=== PATIENT | male | born 1945 | race Caucasian/White ===

== ENCOUNTER 2020-12-27 16:52 | Observation (INO) | payer OTHER ==
--- OUTSIDE RECORDS SUMMARY | 2020-12-27 16:57 | XMS REPORT | Continuity of Care Document ---
:1945 Author Organization [facility] t Address [address] [place] [address] Care Team Providers Name Role Phone Encarnacion DO Attending Clinician Doctor Unassigned, Name Attending Clinician Unavailable Only, Test Attending Clinician Unavailable Pob, Lab Main Attending Clinician Unavailable Payers Payer Name Policy Type Policy Number Effective Date Expiration Date S ource Problems This patient has no known problems. Allergies, Adverse Reactions, Alerts Allergy Allergy Status Severity Reaction(s) Onset Inactive Treating Comm ents Source Name Type Date Date Clinician codeine DA Active SV 2018-10 [facility] DA Active SV 2018-10 [facility] 11[facility] meloxica DA Active MO 2018-10 [facility] m 11-06 [place] 00:[facility] methocar DA Active U 2018-10 [facility] bamol 11-06 [place] 00:00: [facility] codeine DA Active SV 2018-10 [facility] 0- [place] [facility] adhesive DA Active SV 2018-10 [facility] tape [place] 00:00: [facility] meloxica DA Active MO 2018-10 [facility] m 0- [place] 00:00: [facility] adhesive DA Active SV [facility] tape 2- [place] 00:[facility] codeine DA [facility] [place] adhesive DA Active [facility] [place] Medications This patient has no known medications. Procedures This patient has no known procedures. Encounters Start End Encounter Admission Attending Care Care Encounter Source Date/Time Date/Time Type Type Clinicians Facility Department ID 2020-10-28 2020-10-28 Emergency Encarnacion, [facility] [id number] 10:23:00 11:38:00 Shon Nay [id number] [place] [id number] [place] [id number] 2020-10-28 2020-10-28 Orders Doctor JESSIKA [id number] 00:00:00 00:00:00 Only Unassigned, JAZZ [id number] [place] [id number] 2020-09-12 2020-09-12 Laboratory Only, [facility] [id number] 13:54:39 14:09:39 Only Test Nay [id number] [place] [id number] [place] [id number] 2020-09-07 2020-09-07 Bargain Table Clerk Justin, [facility] [id number] 08:42:58 08:57:58 Visit Lab Main Nay [id number] [place] [id number] [facility] [phone] [facility] 353 Building Results Test Description Test Time Test Comments Results Result [facility] e Comments - MRI UP JNT W/O 2019-08-17 Patient Name: CONT LT 16:12:00 TONYA SHI Unit No: [id number] EXAMS: CPT CODE: [id number] MRI UP JNT W/[place] [id number] MRI OF THE LEFT SHOULDER DIAGNOSIS: 1. Full-thickness tears of the supraspinatus and infraspinatus tendons with 3.2 cm of retraction. The combined tear measures 3.7 cm in AP diameter. Mild fatty atrophy of the muscles is noted. 2. Full-thickness tear of the superior subscapularis tendon with 1 cm of retraction and medial dislocation of the biceps tendon. Biceps tendinosis is seen with increased diameter of the proximal tendon. There is mild fatty atrophy of the subscapularis muscle. COMMENT: COMPARISON: No prior exams available. Scans were performed in the paracoronal, parasagittal and axial planes utilizing T1 , spin density with fat saturation and T2-weighting with and without fat saturation. The rotator cuff is abnormal as described. The acromion is horizontal with AC joint degenerative change. There is no evidence for a labral tear. Joint and bursal effusions are present. at 1612 Reported and signed by: Surendra Miner MD CC: Santiago Castaneda MD Technologist: Lillie Siddiqi(R) Transcribed D/ ([id number]) FlorL [facility] NAME: TONYA SHI [address] [facility] PHYS: Santiago Casey : 1945 AGE: 74 SEX: M [place] [address] LOC: Y.MRI PHONE #: [phone] EXAM DATE: 08/17/2019 STATUS: REG CLI FAX #: [phone] RAD #: D/C DT PAGE 1 Signed Report Patient Name: TONYA SHI Unit No: [id number] EXAMS: CPT CODE: [id number] [place] JNT W/[place] [id number] <Continued> Orig Print D/T: S: 08/17/2019 (2372) [facility] NAME: TONYA SHI [address] [facility] PHYS: FELICIA Verdin Santiago Castaneda : 1945 AGE: 74 SEX: M [place] [address] LOC: Y.MRI PHONE #: [phone] EXAM DATE: 08/17/2019 STATUS: REG CLI FAX #: [phone] RAD #: D/C DT PAGE 2 Signed Report BASIC METABOLIC PANEL 2019-08-17 13:09:00 Test Item Value Reference Range Interpretation Comme nts SODIUM (test code = NA) 141 mmol/L 136-145 N POTASSIUM (test code = K) 4.7 mmol/L 3.5-5.1 N CHLORIDE (test code = CL) 103.0 mmol/L 98-107 N CARBON DIOXIDE (test code = 28.6 mmol/L 21-32 N CO2) GLUCOSE (test code = GLU) 98 mg/dL 70-110 N BLOOD UREA NITROGEN (test code 30 mg/dL 7-18 H = BUN) GLOMERULAR FILTRATION RATE 46.9 >60 U nit of measure: (test code = GFR) mL/min/1.7 3 [id number] Range:Healthy A dults >90 mL/min/1.73 m2 For Chronic Kidney Disease: Stage II Mi ld Decrease in GFR 60-9 0 Stage III Moderate Decrease in GFR 30-59 Stage IV Severe Decrease in GFR 15-29 Stage V Kidney Failure <15 CREATININE (test code = CREAT) 1.46 mg/dL 0.55-1.30 H CALCIUM (test code = CA) 9.1 mg/dL 8.2-10.1 N HGB [id number] 12:29:00 Test Item Value Reference Range Interpretation Comments HEMOGLOBIN (test code = HGB) 12.7 g/dL 12-16 N HEMATOCRIT (test code = HCT) 38.2 % 37-47 N HGB [id number] 05:56:00 Test Item Value Reference Range Interpretation Comments HEMOGLOBIN (test code = HGB) 12.3 g/dL 12-16 N HEMATOCRIT (test code = HCT) 37.3 % 37-47 N URINALYSIS [id number] 16:32:00 Test Item Value Reference Range Interpretation Comments UA COLOR (test code = COLU) YELLOW YELLOW UA APPEARANCE (test code = APPU) CLEAR CLEAR UA GLUCOSE DIPSTICK (test code = NEGATIVE NEGATIVE DGLUU) UA BILIRUBIN DIPSTICK (test code = NEG NEGATIVE BILU) UA KETONE DIPSTICK (test code = NEG mg/dL NEGATIVE KETU) UA SPECIFIC GRAVITY (test code = 1.015 1.003-1.035 SGU) UA BLOOD DIPSTICK (test code = HARVEY) TRACE NEGATIVE A UA PH DIPSTICK (test code = DARLENE) 6.0 >6.5 UA PROTEIN DIPSTICK (test code = NEG mg/dL NEG PROU) UA UROBILINIOGEN DIPSTICK (test 0.2 mg/dL NORM code = URO) UA NITRITE DIPSTICK (test code = NEG NEG FABIENNE) UA LEUKOCYTE ESTERASE DIPSTICK NEG NEGATIVE (test code = LEUU) UA WBC (test code = WBCU) 0-2 /HPF 0-2 UA RBC (test code = RBCU) 0-2 /HPF 0-2 UA EPITHELIAL CELLS (test code = RARE /HPF 0-2 EPIU) UA BACTERIA (test code = BACU) FEW /HPF NONE UA MUCUS (test code = MUCU) 2+ /LPF NONE SEEN PROTHROMBIN [id number] 14:02:00 Test Item Value Reference Range Interpretation Comments PROTHROMBIN TIME 11.7 secs 10.1-12.5 N PATIENT (test code = PTP) INTERNATIONAL NORMAL 1.04 <2.0 RECOMME NDED THERAPEUTIC RATIO (test code = RANGE FOR ORAL INR) ANTICOAGULANTTR EATMENT: CONDI TION INRProphylaxis of venous thrombos is in 2.0 - 3.0 high-risk medic al or surgical patientsTreatme nt of venous thrombos is 2.0 - 3.0Prevention o f embolism 2.0 - 3.0Prevention o f recurrent embol ism, or 3.0 - 4. 5 patients with mechanical pros thetic intravascular v meyer IS PATIENT ON ANTICOAGULANTS ? YLIST ANTICOAGULANT/ANTI PLT MEDICATION : AspirinHas Lab been notified if Patient is on Heparin Drip? NOTHROMBOPLASTIN TIME [id number] 14:02:00 Test Item Value Reference Range Interpretation Comments PTT ACTIVATED (test code = APTT) secs 24.9-37.0 IS PATIENT ON ANTICOAGULANTS ? YLIST ANTICOAGULANT/ANTI PLT MEDICATION : AspirinHas Lab been notified if Patient is on Heparin Drip? NOPROTHROMBIN TIME 2018-11-16 14:02:00 Test Item Value Reference Range Interpretation Comments PROTHROMBIN TIME 11.7 secs 10.1-12.5 N PATIENT (test code = PTP) INTERNATIONAL NORMAL 1.04 <2.0 RECOMME NDED THERAPEUTIC RATIO (test code = RANGE FOR ORAL INR) ANTICOAGULANTTR EATMENT: CONDI TION INRProphylaxis of venous thrombos is in 2.0 - 3.0 high-risk medic al or surgical patientsTreatme nt of venous thrombos is 2.0 - 3.0Prevention o f embolism 2.0 - 3.0Prevention o f recurrent embol ism, or 3.0 - 4. 5 patients with mechanical pros thetic intravascular v meyer IS PATIENT ON ANTICOAGULANTS ? YLIST ANTICOAGULANT/ANTI PLT MEDICATION : AspirinHas Lab been notified if Patient is on Heparin Drip? NOTHROMBOPLASTIN TIME [id number] 14:02:00 Test Item Value Reference Range Interpretation Comments PTT ACTIVATED (test code = APTT) 26.4 secs 24.9-37.0 N IS PATIENT ON ANTICOAGULANTS ? YLIST ANTICOAGULANT/ANTI PLT MEDICATION : AspirinHas Lab been notified if Patient is on Heparin Drip? NOCOMPREHENSIVE METABOLIC [id number] 13:20:00 Test Item Value Reference Range Interpretation Comments SODIUM (test code = 141 mmol/L 136-145 N NA) POTASSIUM (test code = 5.0 mmol/L 3.5-5.1 N K) CHLORIDE (test code = 103.0 mmol/L 98-107 N CL) CARBON DIOXIDE (test 27.6 mmol/L 21-32 N code = CO2) GLUCOSE (test code = 94 mg/dL 70-110 N GLU) BLOOD UREA NITROGEN 14 mg/dL 7-18 N (test code = BUN) GLOMERULAR FILTRATION 71.2 >60 Unit o f measure: RATE (test code = GFR) mL/mi n/1.73 [id number] Range:Healthy Adults >90 mL/min/1.73 m2 For Chronic Kidney Disease: St age II Mild Decrease in GFR 60-90 St age III Moderate Decrease in GFR 30-59 Stage IV Severe Decre ase in GFR 15- 29 Stage V Kidney Failure <15 CREATININE (test code 1.02 mg/dL 0.55-1.30 N = CREAT) TOTAL PROTEIN (test 6.4 g/dL 6.4-8.2 N code = PROT) ALBUMIN (test code = 3.7 g/dL 3.4-5.0 N ALB) GLOBULIN (test code = 2.7 g/dL 2.2-4.2 N GLOB) ALBUMIN/GLOBULIN RATIO 1.4 0.7-2.0 N (test code = A/G) CALCIUM (test code = 8.7 mg/dL 8.2-10.1 N CA) BILIRUBIN TOTAL (test 0.41 mg/dL 0.2-1.00 N code = BILT) SGOT/AST (test code = 18.0 U/L 15-37 N AST) SGPT/ALT (test code = 24.0 U/L 12-78 N Please note new ALT) normal range. ALKALINE PHOSPHATASE 112 U/L 46-116 N TOTAL (test code = ALKP) CBC W/AUTO [id number] 13:00:00 Test Item Value Reference Range Interpretation Comments WHITE BLOOD CELL (test code = WBC) 7.3 K/mm3 5.7-10.5 N RED BLOOD CELL (test code = RBC) 4.81 M/mm3 4.2-5.4 N HEMOGLOBIN (test code = HGB) 14.0 g/dL 12-16 N HEMATOCRIT (test code = HCT) 43.0 % 37-47 N MEAN CELL VOLUME (test code = MCV) 89 fL 80-98 N MEAN CELL HGB (test code = MCH) 29.1 pg 27-34 N MEAN CELL HGB CONCENTRATION (test 32.6 g/dL 30.8-34.1 N code = MCHC) RED CELL DISTRIBUTION WIDTH (test 13.3 % 11-16 N code = RDW) PLT (test code = PLT) 208 K/mm3 130-400 N MEAN PLATELET VOLUME (test code = 11.0 fL 8.9-12.1 N MPV) NEUTROPHIL % (test code = NT%) 69.9 % 45-70 N LYMPHOCYTE % (test code = LY%) 20.8 % 20-40 N MONOCYTE % (test code = MO%) 6.6 % 3-10 N EOSINOPHIL % (test code = EO%) 1.8 % 1-5 N BASOPHIL % (test code = BA%) 0.4 % 0.0-1.1 N NEUTROPHIL # (test code = NT#) 5.11 K/mm3 2.00-7.50 N LYMPHOCYTE # (test code = LY#) 1.52 K/mm3 1.50-4.00 N MONOCYTE # (test code = MO#) 0.48 K/mm3 0.2-0.8 N EOSINOPHIL # (test code = EO#) 0.13 K/mm3 0.04-0.4 N BASOPHIL # (test code = BA#) 0.03 K/mm3 0.02-0.10 N MANUAL DIFF REQUIRED (test code = NO MANUAL DIFF MDIFF) PLATELET MORPHOLOGY REQUIRED (test NORMAL code = PLTMR)
[2020-12-27 18:48] LABS: Absolute Lymphocytes (CBC) 1.8 K/uL (0.7-4.9); Basophils % 0.8 % (0-1.3); Hematocrit 44.8 % (39.6-49.0); Lymphocytes % 12.5 % (15.3-44.8); MPV 8.5 fL (7.6-11.3); RBC Red Blood Cell Count 5.05 M/uL (4.33-5.43)
[2020-12-27 18:49] LABS: Protime INR 1.02
[2020-12-27] MEDS ORDERED: NA CHLORIDE 0.9% 500 ML ONE ×2 (18:55→19:45)
[2020-12-27 19:02] LABS: ALT/SGPT 30 U/L (12-78); AST/SGOT 18 U/L (15-37); Albumin 3.6 g/dL (3.4-5.0); Alkaline Phosphatase 146 U/L (45-117); BUN Blood Urea Nitrogen 13 mg/dL (7-18); Bicarbonate 25 mmol/L (21-32); Bilirubin Direct 0.1 mg/dL (0-0.2); Bilirubin Total 0.5 mg/dL (0.2-1.0); Glucose Level 130 mg/dL (74-106); Magnesium 2.3 mg/dL (1.8-2.4); NT PRO-BNP 186 pg/mL (<450); Potassium 4.1 mmol/L (3.5-5.1); Protein, Total 7.5 g/dL (6.4-8.2); Sodium Level 140 mmol/L (136-145); Troponin (Emerg Dept Use Only) < 0.02 ng/mL (0.0-0.045)
[2020-12-27 19:33] LABS: Urine Blood NEGATIVE (NEG); Urine Glucose NEGATIVE (NEG); Urine Protein 1+ (NEG); Urine Specific Gravity >1.030 (1.005-1.030)
[2020-12-27] MEDS ORDERED: CEFEPIME/SWI 1gm 10 ML ONE (20:01)
[2020-12-27] MEDS ORDERED: NA CHLORIDE 0.9% 2,000 ML ONE (20:10)
[2020-12-27 20:39] LABS: Urine Bacteria 20-50 /HPF (NONE SEEN); Urine Mucus 3+ /HPF (NONE SEEN); Urine RBC <5 /HPF (NONE SEEN)
--- NOTE | 2020-12-27 20:39 | RAD REPORT ---
EXAM DESCRIPTION: CT - Abdomen Pelvis W Contrast - 12/27/2020 8:04 pm CLINICAL HISTORY: Abdominal pain COMPARISON: 2013 TECHNIQUE: Computed axial tomography of the abdomen pelvis was obtained. 100 cc [id number]-300 was admin istered intravenously. Oral contrast was not requested which limits evaluation of bowel. All CT scans are performed using dose optimization technique as appropriate and may include automated exposure control or mA/KV adjustment according to patient size. FINDINGS: 2 centimeter cystic mass is present within the uncinate process of the pancreas. It has in creased in size from the prior exam in which it measured 1.5 centimeters. The remainder of the pancre as is unremarkable Mild fatty liver. Cholecystectomy. Spleen and adrenals unremarkable Small renal cysts. Tiny nonobstructing calculus right kidney. Diverticulum extends from the third por tion of the duodenum. Small inguinal hernias contain fat The wall of a loop of ileum is moderately thickened. Small amount of ascites within the abdomen and p archie. Normal appendix. No evidence of diverticulitis IMPRESSION: 2 centimeter cystic mass within the pancreas has increased in size from the prior exam. 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
--- NOTE | 2020-12-27 20:40 | RAD REPORT ---
EXAM DESCRIPTION: Genevieve Single View12/27/2020 8:15 pm CLINICAL HISTORY: Chest pain COMPARISON: December 26, 2020 FINDINGS: The lungs appear clear of acute infiltrate. The heart is normal size IMPRESSION: No acute abnormalities displayed
[2020-12-27] MEDS ORDERED: METRONIDAZOLE 500mg IVPB 500 MG/100 ML BAG IV ONE (21:38)
--- NOTE | 2020-12-27 21:59 | P.HP ---
Certification for Inpatient Patient admitted to: Observation With expected LOS: <2 Midnights Patient will require the following post-hospital care: None Practitioner: I am a practitioner with admitting privileges, knowledge of patient current condition, hospital course, and medical plan of care. Services: Services provided to patient in accordance with Admission requirements found in Title 42 Section 412.3 of the Code of Federal Regulations Patient History Date of Service: 12/27/20 Primary Care Provider: Dr. Cornejo Reason for admission: Ileitis/UTI History of Present Illness: 75-year-old male with history of hypertension, hyperlipidemia, diverticulitis presents emergency department for abdominal pain, chills. Maxime fields reports he had 1 episode of diarrhea this morning without any melena or bright red blood per rectum. Patient evaluated in the emergency department found to have elevated white blood cell count at 14.7 with left shift, pro calcitonin 0.11 urine microscopic demonstrate 20-50 bacteria, blood in urine cultures obtained in the ER, patient given cefepime, Flagyl in the emergency department. 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 Patient unaware of this incidental finding on prior exam, patient without any epigastric pain or tenderness, lipase within normal limits. This finding was discussed with the patient and he will likely require further workup as an outpatient with gastroenterology. LFTs within normal limits, history of cholecystectomy. ED provider wishes to admit patient for further evaluation and management of UTI/ileitis patient does not appear septic at this time. Allergies codeine Allergy (Verified 11/11/17 11:40) Itching morphine Allergy (Verified 11/11/17 11:40) Itching/Hives/Rash Home Medications: Atorvastatin Calcium [Lipitor*] 20 mg PO BEDTIME 08/20/14 Citalopram [Celexa*] 20 mg PO DAILY 08/20/14 lisinopriL [Prinivil*] 20 mg PO DAILY AFTER SUPPER 08/20/14 Aspirin [Aspirin EC 325 MG] 325 mg PO DAILY 12/25/14 Omeprazole [Prilosec] 40 mg PO DAILY 11/11/17 Sulfamethoxazole/Trimethoprim [Bactrim Ds Tablet] 1 each PO BID #10 tablet 11/15/17 Tramadol HCl/Acetaminophen [Ultracet Tablet] 1 each PO Q4H PRN #30 tablet 11/15/17 - Past Medical/Surgical History Diabetic: No -: HTN -: GERD -: Stroke -: NH -: Diverticulitis -: Hyperlipidemia -: Cholecystectomy Psychosocial/ Personal History: Patient is retired and lives with his - Family History Father Notes: No significant past medical history 1st degree family relatives - Social History Smoking Status: Never smoker Alcohol use: No CD- Drugs: No Caffeine use: Yes Place of Residence: Home Review of Systems General: Chills, Malaise Gastrointestinal: Abdominal Pain, Diarrhea Physical Examination - Physical Exam General: Alert, In no apparent distress HEENT: Atraumatic, PERRLA, Mucous membr. moist/pink Neck: Supple, 2+ carotid pulse no bruit, No LAD Respiratory: Clear to auscultation bilaterally, Normal air movement Cardiovascular: Regular rate/rhythm, Normal S1 S2 Gastrointestinal: Normal bowel sounds, No masses, No rebound, No guarding, Tenderness (Mild suprapubic tenderness) Musculoskeletal: No tenderness Integumentary: No rashes Neurological: Normal speech, Normal strength at 5/5 x4 extr, Normal tone, Normal affect - Studies Laboratory Data (last 24 hrs) 12/27/20 18:30: Lipase 75 12/27/20 18:30: PT 11.7, INR 1.02 12/27/20 18:30: WBC 14.70 H, Hgb 14.9, Hct 44.8, Plt Count 325 12/27/20 18:30: Sodium 140, Potassium 4.1, BUN 13, Creatinine 1.21, Glucose 130 H, Magnesium 2.3, Total Bilirubin 0.5, AST 18, ALT 30, Alkaline Phosphatase 146 H Assessment and Plan - Plan Assessment Abdominal pain/diarrhea/leukocytosis secondary to ileitis Urinary tract infection Incidental finding of 2 cm Cystic mass within the pancreas 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 Clear liquids, advance as tolerated. DVT prophylaxis Lovenox 40 mg subcutaneous once daily. Urinary tract infection: Continue Rocephin, urine culture and blood culture obtained in the emergency department. 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 Discussed this with patient in addition to the need for outpatient follow up, lipase within normal limits. May consult Gastroenterology as necessary. Hypertension: Obtain and continue home med Hyperlipidemia: Obtain and continue home med Discharge Plan: Home Plan to discharge in: 24 Hours - Advance Directives Does patient have a Living Will: No Does patient have a Durable POA for Healthcare: No - Code Status/Comfort Care Code Status Assessed: Yes (Full code) Critical Care: No Time Spent Managing Pts Care (In Minutes): 55
--- NOTE | 2020-12-27 22:03 | ER ---
Nurse's Notes [facility] Name: Zion Guzman Age: 75 yrs Sex: Male : 1945 Arrival Date: 12/27/2020 Time: 17:01 Bed 8 Private MD: Juan Carlos Cornejo E Diagnosis: Urinary tract infection, site not specified;Ileitis Presentation: 12/27 17:14 Chief complaint: Spouse and/or significant other states: "he is recovering from jd3 shingles, and the doc change up his meds and I think he is having a medication reaction today. he goes from hot to cold. sweating to absolute freezing. he was taken off of the valacyclovir and was prescribed famciclovir. I don't know if it is a medication reaction or what. stinging pain to my up chest neck area, and my stomach has been messed up too.". Coronavirus screen: At this time, the client does not indicate any symptoms associated with coronavirus-19. Ebola Screen: Patient negative for fever greater than or equal to 101.5 degrees Fahrenheit, and additional compatible Ebola Virus Disease symptoms. Initial Sepsis Screen: Does the patient meet any 2 criteria? No. Patient's initial sepsis screen is negative. Does the patient have a suspected source of infection? No. Patient's initial sepsis screen is negative. Risk Assessment: Do you want to hurt yourself or someone else? Patient reports no desire to harm self or others. Onset of symptoms was December 27, 2020. 17:14 Method Of Arrival: Wheelchair jd3 17:14 Acuity: EASTON 3 jd3 Historical: - Allergies: 17:20 codeine; jd3 17:20 Robaxin; jd3 - Home Meds: 17:20 atorvastatin oral oral [Active]; citalopram oral [Active]; Lisinopril Oral [Active]; jd3 memantine oral oral [Active]; Aspirin Oral [Active]; - PMHx: 17:20 shingles; Hypertension; jd3 17:22 CVA; jd3 - PSHx: 17:20 Cholecystectomy; right knee; CLARENCE shoulders; jd3 - Immunization history:: Adult Immunizations up to date. - Social history:: Smoking status: Patient reports the use of cigarette tobacco products, denies chronic smoking, but will smoke occasionally. Screenin:42 Abuse screen: Denies threats or abuse. Nutritional screening: No deficits noted. bw Tuberculosis screening: No symptoms or risk factors identified. Fall Risk None identified. Assessment: 17:43 General: Appears in no apparent distress. uncomfortable, Behavior is calm, cooperative, bw appropriate for age. Pain:. Neuro: No deficits noted. Reports weakness since starting new medication. Cardiovascular: No deficits noted. Respiratory: No deficits noted. GI: No deficits noted. : No deficits noted. EENT: No deficits noted. 18:49 Reassessment: Patient appears in no apparent distress at this time. No changes from previously documented assessment. Patient and/or family updated on plan of care and expected duration. Pain level reassessed. Patient is alert, oriented x 3, equal unlabored respirations, skin warm/dry/pink. 19:38 Reassessment: Patient appears in no apparent distress at this time. Patient and/or mg2 family updated on plan of care and expected duration. Pain level reassessed. Patient is alert, oriented x 3, equal unlabored respirations, skin warm/dry/pink. 20:20 Reassessment: Patient appears in no apparent distress at this time. hospitalist at rr5 bedside. 21:24 Reassessment: Patient appears in no apparent distress at this time. provider added rr5 orders of laboratory and medication, no disposition at this time. 22:30 Reassessment: Patient appears in no apparent distress at this time. Patient and/or rr5 family updated on plan of care and expected duration. Pain level reassessed. Patient is alert, oriented x 3, equal unlabored respirations, skin warm/dry/pink. awaiting for covid result. 23:42 Reassessment: Patient appears in no apparent distress at this time. No changes from rr5 previously documented assessment. Patient is alert, oriented x 3, equal unlabored respirations, skin warm/dry/pink. Vital Signs: 17:21 BP 109 / 69; Pulse 86; Resp 17 S; Temp 98.3(O); Pulse Ox 98% on R/A; Weight 97.07 kg jd3 (R); Height 5 ft. 9 in. (175.26 cm) (R); Pain 8/10; 18:42 BP 138 / 71; Pulse 67; Resp 18; Pulse Ox 94% on R/A; bw 19:39 BP 137 / 64; Pulse 73; Resp 18; Pulse Ox 98% on R/A; mg2 20:49 BP 125 / 64; Pulse 70; Resp 19; Temp 98; Pulse Ox 99% ; rr5 21:46 BP 121 / 70; Pulse 79; Resp 16; Pulse Ox 98% ; rr5 23:41 BP 131 / 65; Pulse 72; Resp 19; Temp 98.4; Pulse Ox 98% ; rr5 17:21 Body Mass Index 31.60 (97.07 kg, 175.26 cm) jd3 ED Course: 17:01 Patient arrived in ED. am2 17:02 Juan Carlos Cornejo MD is Private Physician. am2 17:17 Triage completed. jd3 17:21 Arm band placed on. jd3 17:42 Te Paris PA is PHCP. cp 17:42 Sam Barnes MD is Attending Physician. cp 17:43 Paola Jackson RN is Primary Nurse. bw 18:40 Blood Culture Adult (2) Sent. bw 18:40 Lactate Sent. bw 18:40 Procalcitonin Sent. bw 18:42 Patient has correct armband on for positive identification. Bed in low position. Call bw light in reach. Side rails up X2. Pulse ox on. NIBP on. Warm blanket given. 18:42 No provider procedures requiring assistance completed. Inserted saline lock: 20 gauge bw in right antecubital area, using aseptic technique. 21:15 COVID swab sent to lab. rr5 22:02 Dharmesh Ferrer DO is Hospitalizing Provider. cp 23:41 Patient admitted, IV remains in place. intact, No redness/swelling at site. rr5 Administered Medications: 18:41 Drug: NS 0.9% 500 ml Route: IV; Rate: bolus; Site: right antecubital; bw 19:30 Follow up: Response: No adverse reaction; IV Status: Completed infusion; IV Intake: rr5 500ml 19:37 Drug: NS 0.9% 500 ml Route: IV; Rate: bolus; Site: right antecubital; rr5 20:15 Follow up: Response: No adverse reaction; IV Status: Completed infusion; IV Intake: rr5 500ml 19:46 Drug: Cefepime 1 grams Route: IVPB; Rate: 200 ml/hr; Infused Over: 30 mins; Site: right mg2 antecubital; 21:00 Follow up: Response: No adverse reaction; IV Status: Completed infusion; IV Intake: rr5 100ml 19:53 Drug: NS 0.9% (30 ml/kg) 30 ml/kg Route: IV; Rate: bolus; Site: right antecubital; mg2 20:40 Follow up: Response: No adverse reaction; IV Status: Completed infusion; IV Intake: rr5 1900ml 21:45 Drug: Flagyl 500 mg Volume: 100 ml; Route: IVPB; Rate: 200 ml/hr; Infused Over: 30 rr5 mins; Site: right antecubital; 22:15 Follow up: Response: No adverse reaction; IV Status: Completed infusion; IV Intake: rr5 100ml Intake: 19:30 IV: 500ml; Total: 500ml. rr5 20:15 IV: 500ml; Total: 1000ml. rr5 20:40 IV: 1900ml; Total: 2900ml. rr5 21:00 IV: 100ml; Total: 3000ml. rr5 22:15 IV: 100ml; Total: 3100ml. rr5 Outcome: 22:02 Decision to Hospitalize by Provider. cp 23:41 Admitted to Med/surg accompanied by tech, via stretcher, room 206, with chart, Report rr5 called to alexis 23:41 Condition: stable 23:41 Instructed on the need for admit. 23:47 Patient left the ED. rr5 Signatures: Te Paris PA PA cp Susan Mason am2 Lupillo Aguilar RN RN jd3 Suleman Vasquez RN RN mg2 Raudel Tang RN RN rr5 Paola Jackson RN RN bw Corrections: (The following items were deleted from the chart) 20:49 19:39 BP 137 / 64; Pulse 70bpm; Resp 19bpm; Pulse Ox 99%; Temp 98F; rr5 rr5
--- NOTE | 2020-12-27 22:03 | EDPHYS ---
Physician Documentation [facility] Name: Zion Guzman Age: 75 yrs Sex: Male : 1945 Arrival Date: 12/27/2020 Time: 17:01 Bed 8 Private MD: Juan Carlos Cornejo E ED Physician Sam Barnes HPI: 12/27 18:05 This 75 yrs old Male presents to ER via Wheelchair with complaints of cp cold/hot sweats, Doesn't Feel Right, new medication. 18:05 The patient reports fever, not measured (subjective). cp 18:05 Onset: The symptoms/episode began/occurred today. Associated signs and symptoms: cp Pertinent positives: chills, sweats. Patient concerned symptoms due to change of medication for recent shingles outbreak to left side of face. Patient reports change of medication was to a new antiviral, unsure of name of medication . Historical: - Allergies: 17:20 codeine; jd3 17:20 Robaxin; jd3 - Home Meds: 17:20 atorvastatin oral oral [Active]; citalopram oral [Active]; Lisinopril Oral [Active]; jd3 memantine oral oral [Active]; Aspirin Oral [Active]; - PMHx: 17:20 shingles; Hypertension; jd3 17:22 CVA; jd3 - PSHx: 17:20 Cholecystectomy; right knee; CLARENCE shoulders; jd3 - Immunization history:: Adult Immunizations up to date. - Social history:: Smoking status: Patient reports the use of cigarette tobacco products, denies chronic smoking, but will smoke occasionally. ROS: 18:10 Constitutional: Positive for body aches, chills, Negative for fever, poor PO intake. cp 18:10 Eyes: Negative for injury, pain, redness, and discharge. cp 18:10 ENT: Negative for ear pain, sore throat, difficulty swallowing, difficulty handling secretions. 18:10 Cardiovascular: Negative for chest pain, edema, palpitations. 18:10 Respiratory: Negative for cough, shortness of breath, wheezing. 18:10 Abdomen/GI: Positive for abdominal pain, Negative for vomiting, diarrhea, constipation. 18:10 : Negative for urinary symptoms. 18:10 Skin: Positive for rash, of the left side of face. 18:10 Neuro: Negative for altered mental status, dizziness, headache, syncope, weakness. 18:10 All other systems are negative. Exam: 18:15 Constitutional: The patient appears in no acute distress, alert, awake, cp non-diaphoretic, non-toxic, well developed, well nourished, uncomfortable. 18:15 Head/face: Noted is rash, of the left frontal area, left side of forehead, left cp temporal area and left taoism. 18:15 Eyes: Periorbital structures: appear normal, Pupils: equal, round, and reactive to light and accomodation, Extraocular movements: intact throughout, Conjunctiva: normal, no exudate, no injection, Sclera: no appreciated abnormality, Lids and lashes: appear normal, bilaterally. 18:15 ENT: External ear(s): are unremarkable, Nose: is normal, Mouth: Lips: moist, Oral mucosa: moist, Posterior pharynx: Airway: no evidence of obstruction, patent. 18:15 Neck: ROM/movement: is normal, is supple, without pain, no range of motions limitations, no meningismus, no nuchal rigidity. 18:15 Chest/axilla: Inspection: normal, Palpation: is normal, no crepitus, no tenderness. 18:15 Cardiovascular: Rate: normal, Rhythm: regular, Edema: is not appreciated, JVD: is not appreciated. 18:15 Respiratory: the patient does not display signs of respiratory distress, Respirations: normal, no use of accessory muscles, no retractions, labored breathing, is not present, Breath sounds: are clear throughout, no decreased breath sounds, no stridor, no wheezing. 18:15 Abdomen/GI: Inspection: abdomen appears normal, Bowel sounds: active, all quadrants, Palpation: soft, in all quadrants, mild abdominal tenderness, in the mid abdomen, rebound tenderness, is not appreciated, involuntary guarding, is not appreciated. 18:15 Back: pain, is absent, ROM is normal. 18:15 Neuro: Orientation: to person, place \\T\\ time. Mentation: is normal, Motor: moves all fours, strength is normal. Vital Signs: 17:21 BP 109 / 69; Pulse 86; Resp 17 S; Temp 98.3(O); Pulse Ox 98% on R/A; Weight 97.07 kg jd3 (R); Height 5 ft. 9 in. (175.26 cm) (R); Pain 8/10; 18:42 BP 138 / 71; Pulse 67; Resp 18; Pulse Ox 94% on R/A; bw 19:39 BP 137 / 64; Pulse 73; Resp 18; Pulse Ox 98% on R/A; mg2 20:49 BP 125 / 64; Pulse 70; Resp 19; Temp 98; Pulse Ox 99% ; rr5 21:46 BP 121 / 70; Pulse 79; Resp 16; Pulse Ox 98% ; rr5 23:41 BP 131 / 65; Pulse 72; Resp 19; Temp 98.4; Pulse Ox 98% ; rr5 17:21 Body Mass Index 31.60 (97.07 kg, 175.26 cm) jd3 MDM: 17:48 Patient medically screened. cp 21:20 Data reviewed: vital signs, nurses notes, lab test result(s), radiologic studies, CT cp scan, plain films, and as a result, I will admit patient. 21:20 Physician consultation: Ba PERRY was called at 21:15, was contacted at 21:15, cp regarding admission, to the medical/surgical unit. concern for early sepsis due to elevated WBC, elevated lactate and elevated procalcitonin, would like further tests performed, lipase prior to admission due CT showing pancreatic mass. 12/27 18:01 Order name: Basic Metabolic Panel; Complete Time: 19:21 cp 12/27 19:21 Interpretation: Normal except: GLUC 130; GFR 58. cp 12/27 18:01 Order name: CBC with Diff; Complete Time: 19:21 cp 12/27 19:21 Interpretation: Normal except: WBC 14.70; RDW 15.8; MARYCARMEN% 80.9; LYM% 12.5; NEUT A 11.9. cp 03/ 18:01 Order name: LFT's; Complete Time: 19:21 cp 03 19:49 Interpretation: Normal except: ALK 146; GLOB 3.9; A/G 0.9. cp 03/ 18:01 Order name: Magnesium; Complete Time: 19:21 cp 12/27 18:01 Order name: NT PRO-BNP; Complete Time: 19:21 cp 12/27 18:01 Order name: PT-INR; Complete Time: 19:21 cp 12/27 18:01 Order name: Troponin (emerg Dept Use Only); Complete Time: 19:21 cp 03 18:01 Order name: Urine Microscopic Only; Complete Time: 21:00 cp 03/ 21:14 Interpretation: Normal except: UWBC 5-10; UBACT 20-50; MUCUS 3+. cp 03/ 18:01 Order name: Procalcitonin; Complete Time: 19:33 cp 12/27 19:34 Interpretation: Abnormal: Procalcitonin 0.11. cp 03/ 18:01 Order name: Lactate; Complete Time: 19:21 cp 03/ 19:22 Interpretation: Abnormal: LAC 2.7. cp 03/ 18:01 Order name: Blood Culture Adult (2) cp 12/27 19:30 Order name: Urine Dipstick--Ancillary (enter results) tt3 12/27 19:33 Order name: Urine Dipstick-Ancillary; Complete Time: 19:33 EDMS 12/27 21:11 Order name: COVID-19 : Document "Date of Symptom Onset" if Symptomatic. mg2 12/27 18:01 Order name: EKG; Complete Time: 18:02 cp 12/27 18:01 Order name: Cardiac monitoring; Complete Time: 18:41 cp 12/27 19:23 Order name: XRAY Chest (1 view) cp 12/27 19:38 Order name: CT Abd/Pelvis - IV Contrast Only cp 12/27 20:40 Order name: CT; Complete Time: 21:00 EDMS 12/27 20:41 Order name: RAD; Complete Time: 21:00 EDMS 12/27 21:16 Order name: Lipase cp 12/27 21:35 Order name: CORONAVIRUS EDMS 12/27 21:49 Order name: Lipase; Complete Time: 21:57 EDMS 12/27 22:09 Order name: Lactate Sepsis 2 HR Follow-up EDMS 12/27 22:27 Order name: SARS-COV-2 RT PCR EDMS 12/27 18:01 Order name: EKG - Nurse/Tech; Complete Time: 18:41 cp 12/27 18:01 Order name: IV Saline Lock; Complete Time: 18:41 cp 12/27 18:01 Order name: Labs collected and sent; Complete Time: 18:41 cp 12/27 18:01 Order name: O2 Per Protocol; Complete Time: 18:42 cp 12/27 18:01 Order name: O2 Sat Monitoring; Complete Time: 18:42 cp 12/27 18:01 Order name: Urine Dipstick-Ancillary (obtain specimen); Complete Time: 19:38 cp Administered Medications: 18:41 Drug: NS 0.9% 500 ml Route: IV; Rate: bolus; Site: right antecubital; bw 19:30 Follow up: Response: No adverse reaction; IV Status: Completed infusion; IV Intake: rr5 500ml 19:37 Drug: NS 0.9% 500 ml Route: IV; Rate: bolus; Site: right antecubital; rr5 20:15 Follow up: Response: No adverse reaction; IV Status: Completed infusion; IV Intake: rr5 500ml 19:46 Drug: Cefepime 1 grams Route: IVPB; Rate: 200 ml/hr; Infused Over: 30 mins; Site: right mg2 antecubital; 21:00 Follow up: Response: No adverse reaction; IV Status: Completed infusion; IV Intake: rr5 100ml 19:53 Drug: NS 0.9% (30 ml/kg) 30 ml/kg Route: IV; Rate: bolus; Site: right antecubital; mg2 20:40 Follow up: Response: No adverse reaction; IV Status: Completed infusion; IV Intake: rr5 1900ml 21:45 Drug: Flagyl 500 mg Volume: 100 ml; Route: IVPB; Rate: 200 ml/hr; Infused Over: 30 rr5 mins; Site: right antecubital; 22:15 Follow up: Response: No adverse reaction; IV Status: Completed infusion; IV Intake: rr5 100ml Disposition: 22:30 Chart complete. cp Disposition: 12/27/20 22:02 Hospitalization ordered by Dharmesh Ferrer for Inpatient Admission. Preliminary diagnosis are Urinary tract infection, site not specified, Ileitis. - Bed requested for Telemetry/MedSurg (Inpatient). - Status is Inpatient Admission. rr5 - Condition is Stable. - Problem is new. - Symptoms have improved. Addendum: 12/29/2020 09:14 Co-signature as Attending Physician, Sam Barnes MD I agree with the assessment and k dr plan of care. Signatures: Dispatcher [employer] EDSam Mercer MD MD kdr Attema, Lee, MANUFACTURING CONTROLS ENGINEER-C MANUFACTURING CONTROLS ENGINEER-Cla1 Page, Te, PA PA cp Sofi Nation, RN RN cg Lupillo Aguilar, RN RN jd3 Suleman Vasquez, RN PRINCESS [facility] [place] Raudel Tang RN RN rr5 Paola Jackson RN RN Corrections: (The following items were deleted from the chart) 12/27 19:37 19:23 [place] ordered. cp rr5 22:04 22:02 Hospitalization Ordered by Dharmesh Ferrer DO for Inpatient Admission. Preliminary cp diagnosis is Urinary tract infection, site not specified. Bed requested for Telemetry/MedSurg (Inpatient). Status is Inpatient Admission. Condition is Stable. Problem is new. Symptoms have improved. cp 23:33 22:04 12/27/2020 22:02 Hospitalization Ordered by Dharmesh Ferrer DO for Inpatient cg Admission. Preliminary diagnosis is Urinary tract infection, site not specified; Ileitis. Bed requested for Telemetry/MedSurg (Inpatient). Status is Inpatient Admission. Condition is Stable. Problem is new. Symptoms have improved. cp 23:47 23:33 12/27/2020 22:02 Hospitalization Ordered by Dharmesh Ferrer DO for Inpatient rr5 Admission. Preliminary diagnosis is Urinary tract infection, site not specified; Ileitis. Bed requested for Telemetry/MedSurg (Inpatient). Status is Inpatient Admission. Condition is Stable. Problem is new. Symptoms have improved. cg
[2020-12-28] MEDS ORDERED: ONDANSETRON 4 MG/2 ML VIAL IV PRN (00:24)
[2020-12-28] MEDS ORDERED: NA CHLORIDE 0.9% 1,000 ML IV SCH (00:24)
[2020-12-28] MEDS ORDERED: ACETAMINOPHEN 500 MG TAB PO PRN (00:24)
[2020-12-28] MEDS ORDERED: FENTANYL CITR 100 MCG/2 ML IV PRN (00:24)
[2020-12-28 00:40] VITALS: BMI 30.4
[2020-12-28] MEDS ORDERED: METRONIDAZOLE 500mg IVPB 500 MG/100 ML BAG IV SCH (01:00)
[2020-12-28 01:42] VITALS: O2SAT 98
[2020-12-28 04:32] LABS: Urine Appearance CLEAR; Urine Bilirubin NEGATIVE (NEG); Urine Blood NEGATIVE (NEG); Urine Color YELLOW; Urine Glucose NEGATIVE (NEG); Urine Protein NEGATIVE (NEG); Urine Specific Gravity >=1.030 (1.005-1.030); Urine Urobilinogen 0.2 mg/dL (0.2-1.0); Urine pH 6.5 (5.0-7.0)
[2020-12-28 04:34] LABS: Urine Microscopic Reflex NO UMIC
[2020-12-28] MEDS: METRONIDAZOLE 500mg IVPB 500 MG/100 ML BAG IV SCH ×3 (05:48→21:39)
[2020-12-28 05:51] LABS: Absolute Lymphocytes (CBC) 1.3 K/uL (0.7-4.9); Basophils % 0.5 % (0-1.3); Lymphocytes % 15.5 % (15.3-44.8); MPV 8.3 fL (7.6-11.3); RBC Red Blood Cell Count 3.92 M/uL (4.33-5.43)
[2020-12-28 06:14] LABS: Albumin 2.9 g/dL (3.4-5.0); Bilirubin Total 0.6 mg/dL (0.2-1.0); Magnesium 2.2 mg/dL (1.8-2.4); Potassium 5.2 mmol/L (3.5-5.1); Protein, Total 5.8 g/dL (6.4-8.2); Thyroid Stimulating Hormone 1.69 uIU/mL (0.360-3.740)
[2020-12-28] MEDS ORDERED: TRAMADOL HCL 50 MG TAB PO PRN (08:06)
[2020-12-28] MEDS ORDERED: HYDRALAZINE HCL 20 MG/ML VIAL IV PRN (08:08)
--- NOTE | 2020-12-28 08:20 | P.PN ---
Subjective Date of Service: 12/28/20 Primary Care Provider: Dr. Cornejo Chief Complaint: Ileitis/UTI Subjective: Other (Pain to the abdomen improved. No significant nausea vomiting.) Physical Examination - Vital Signs Temperature: 98.4 F Blood Pressure: 131/58 Pulse: 74 Respirations: 18 Pulse Ox (%): 95 - Studies Laboratory Data (last 24 hrs) 12/27/20 18:30: Lipase 75 12/27/20 18:30: PT 11.7, INR 1.02 12/27/20 18:30: WBC 14.70 H, Hgb 14.9, Hct 44.8, Plt Count 325 12/27/20 18:30: Sodium 140, Potassium 4.1, BUN 13, Creatinine 1.21, Glucose 130 H, Magnesium 2.3, Total Bilirubin 0.5, AST 18, ALT 30, Alkaline Phosphatase 146 H Assessment & Plan Discharge Plan: Home Plan to discharge in: 24 Hours Physician Review Additional Text: Physical exam: Patient alert, cooperative. No significant distress noted. Heart: Regular rate rhythm Lungs: Clear to auscultation Abdomen: Soft minimal tenderness. Normal bowel sounds. Extremities: Good range of motion to the upper lower extremities. No focal deficits. No significant edema noted. 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 Blood and urine cultures obtained. Stool samples also obtained. Patient tolerating clear liquid diet. Will advance to full liquid. If doing well will advance to soft diet later today. Continue DVT prophylaxis. Encourage ambulation. Will provide incentive spirometer. CT scan finding reviewed with patient. Patient sees GI as an outpatient. This will need to be followed up as an outpatient with further evaluation including ERCP and likely biopsy at a tertiary care center. Anticipate improvement over the next 24 hr with possible discharge tomorrow. Acute renal insufficiency with hyperkalemia: Likely dehydration. Will adjust IV fluids. Recheck potassium. 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 2 cm cystic mass present within the uncinate process of the pancreas. This has increased in size. It had measured 1.5 cm in the past. This is suspicious for intraductal papillary mucinous neoplasm. Patient sees GI-Dr. Olson as an outpatient. Recommend follow up with GI as an outpatient for ERCP with likely biopsy. That will likely have to be done at a tertiary care center. Will reach out to GI for further recommendations. Hypertension: Need to obtain and restart home medication. Will provide IV medication as needed. Hyperlipidemia: Need to obtain a restart home medication. Recent episodes of shingles: Patient reports having shingles in September. He was given antiviral at that time along with Neurontin. Neurontin was helping but this was changed to a different type of pain medication. Will need to obtain and verify home medication. Will restart Neurontin 600 mg 3 times a day. Obesity, BMI 30.5: Time Spent Managing Pts Care (In Minutes): 55
[2020-12-28] MEDS: NACHLORIDE 0.45% 1,000 ML IV SCH (09:00)
[2020-12-28] MEDS: ASPIRIN EC 81 MG TAB PO SCH (09:00)
[2020-12-28] MEDS ORDERED: CEFTRIAXONE 1 GM/NS 50 ML 1 GM/50 ML BAG IV SCH (09:00)
[2020-12-28] MEDS: ENOXAPARIN 40 MG/0.4 ML SQ SCH (09:03)
[2020-12-28] MEDS: GABAPENTIN 300 MG CAP PO SCH ×3 (09:03→20:17)
[2020-12-28] MEDS: CEFTRIAXONE/SWI 1gm 1 GM/10 ML SYR IV SCH (09:03)
[2020-12-29] MEDS: NACHLORIDE 0.45% 1,000 ML IV SCH (05:00)
[2020-12-29 06:32] LABS: Absolute Lymphocytes (CBC) 1.1 K/uL (0.7-4.9); Basophils % 0.4 % (0-1.3); Lymphocytes % 18.9 % (15.3-44.8); MPV 8.1 fL (7.6-11.3); RBC Red Blood Cell Count 3.73 M/uL (4.33-5.43)
[2020-12-29] MEDS: METRONIDAZOLE 500mg IVPB 500 MG/100 ML BAG IV SCH (06:34)
[2020-12-29 06:47] LABS: Albumin 2.9 g/dL (3.4-5.0); Bilirubin Total 0.4 mg/dL (0.2-1.0); Magnesium 2.4 mg/dL (1.8-2.4); Potassium 4.2 mmol/L (3.5-5.1); Protein, Total 5.8 g/dL (6.4-8.2)
[2020-12-29] MEDS ORDERED: PANTOPRAZOLE 40MG TABLET PO SCH (07:30)
--- NOTE | 2020-12-29 09:24 | P.DS ---
Admission Date: 12/27/20 Discharge Date: 12/29/20 Primary Care Provider: Dr. Cornejo Disposition: ROUTINE DISCHARGE Discharge Condition: GOOD Reason for Admission: Ileitis/UTI Consultations: None Procedures: COVID: Negative CT Scan: COMPARISON: 2013 TECHNIQUE: Computed axial tomography of the abdomen pelvis was obtained. 100 cc Isovue-300 was administered intravenously. Oral contrast was not requested which limits evaluation of bowel. All CT scans are performed using dose optimization technique as appropriate and may include automated exposure control or mA/KV adjustment according to patient size. FINDINGS: 2 centimeter cystic mass is present within the uncinate process of the pancreas. It has increased in size from the prior exam in which it measured 1.5 centimeters. The remainder of the pancreas is unremarkable Mild fatty liver. Cholecystectomy. Spleen and adrenals unremarkable Small renal cysts. Tiny nonobstructing calculus right kidney. Diverticulum extends from the third portion of the duodenum. Small inguinal hernias contain fat The wall of a loop of ileum is moderately thickened. Small amount of ascites within the abdomen and pelvis. Normal appendix. No evidence of diverticulitis IMPRESSION: 2 centimeter cystic mass within the pancreas has increased in size from the prior exam. 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 Patient reports he had 1 episode of diarrhea this morning without any melena or bright red blood per rectum. Patient evaluated in the emergency department found to have elevated white blood cell count at 14.7 with left shift, pro calcitonin 0.11 urine microscopic demonstrate 20-50 bacteria, blood in urine cultures obtained in the ER, patient given cefepime, Flagyl in the emergency department. 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 Patient unaware of this incidental finding on prior exam, patient without any epigastric pain or tenderness, lipase within normal limits. Patient admitted for further evaluation and treatment. Hospital Course: Patient presented Abdominal pain/diarrhea/leukocytosis secondary to ileitis and UTI. CT scan revealed inflammation to the ileum. The patient was admitted for IV antibiotic treatment. Patient has done well. Blood and urine cultures negative. Patient was slightly dehydrated. This improved with IV fluid hydration. Renal function back to baseline. His diet has been able to be advanced to a soft diet without significant nausea, vomiting or abdominal pain. Patient was able to have a bowel movement without difficulty. At discharge no significant pain noted. At discharge patient will continue with Cipro 500 mg twice daily and Flagyl 500 mg 3 times a day for 7 days. Patient will also continue with probiotic 3 times a day. At discharge patient will continue with a soft diet and advance to a heart healthy diet. Recommend follow up with GI within 1 week to follow up this hospitalization. Patient already sees GI. Patient will likely require colonoscopy in 6-8 weeks. This can be done with the help of GI. CT also showed a 2 cm cystic mass within the pancreas. This has increased in size since 2013. It measured 1.5 cm in the past. This is suspicious for intraductal papillary mucinous neoplasm. Recommend follow up with GI who he already sees as an outpatient. Patient will likely have to have an outpatient ERCP with biopsy. This will need to be further addressed by GI. Patient with hypertension. This appears stable. At discharge patient will continue with lisinopril 20 mg daily. Recommend to maintain blood pressure less than 130/80. Further adjustment can be done by his PCP. Patient with hyperlipidemia. At discharge patient will continue with Lipitor 20 mg daily. Patient with depression. At discharge patient will continue with Celexa 20 mg daily. Patient with GERD. At discharge patient will continue with Prilosec 40 mg daily. Patient with recent history of shingles. This occurred in September. He had been treated with Neurontin but this was changed to another medication. He prefers to continue with Neurontin. Patient will be given it Neurontin 600 mg 3 times a day as needed for pain. Recommend follow up with his PCP to further address and refill medication. Vital Signs/Physical Exam: Temp Pulse Resp BP Pulse Ox 96.8 F 67 19 139/65 97 12/29/20 04:10 12/29/20 04:10 12/29/20 04:10 12/29/20 04:10 12/29/20 04:10 General: Alert, In no apparent distress, Oriented x3, Cooperative HEENT: Atraumatic Neck: Supple Respiratory: Clear to auscultation bilaterally, Normal air movement Cardiovascular: Normal pulses, Regular rate/rhythm Gastrointestinal: Normal bowel sounds, Soft and benign, Non-distended, No ascites, No tenderness, No masses, No rebound, No guarding Musculoskeletal: No erythema, No tenderness, No warmth Integumentary: No tenderness/swelling, No erythema, No warmth, No cyanosis Neurological: Normal speech, Normal strength at 5/5 x4 extr, Normal tone, Normal affect Laboratory Data at Discharge: WBC 6.00 K/uL (4.3-10.9) D 12/29/20 05:55 Hgb 11.3 g/dL (13.6-17.9) L 12/29/20 05:55 Hct 33.0 % (39.6-49.0) L 12/29/20 05:55 Plt Count 196 K/uL (152-406) 12/29/20 05:55 PT 11.7 SECONDS (9.5-12.5) 12/27/20 18:30 INR 1.02 12/27/20 18:30 Sodium 144 mmol/L (136-145) 12/29/20 05:55 Potassium 4.2 mmol/L (3.5-5.1) 12/29/20 05:55 BUN 7 mg/dL (7-18) 12/29/20 05:55 Creatinine 0.96 mg/dL (0.55-1.3) 12/29/20 05:55 Glucose 104 mg/dL (74-106) 12/29/20 05:55 Magnesium 2.4 mg/dL (1.8-2.4) 12/29/20 05:55 Total Bilirubin 0.4 mg/dL (0.2-1.0) 12/29/20 05:55 AST 18 U/L (15-37) 12/29/20 05:55 ALT 23 U/L (12-78) 12/29/20 05:55 Alkaline Phosphatase 110 U/L (45-117) 12/29/20 05:55 Triglycerides 228 mg/dL (<150) H 12/28/20 05:37 Cholesterol 218 mg/dL (<200) H 12/28/20 05:37 HDL Cholesterol 38 mg/dL (40-60) L 12/28/20 05:37 Cholesterol/HDL Ratio 5.74 12/28/20 05:37 Lipase 77 U/L (73-393) 12/28/20 05:37 Home Medications: Atorvastatin Calcium [Lipitor*] 20 mg PO BEDTIME 08/20/14 Citalopram [Celexa*] 20 mg PO DAILY 08/20/14 lisinopriL [Prinivil*] 20 mg PO DAILY AFTER SUPPER 08/20/14 Aspirin [Aspirin EC 325 MG] 325 mg PO DAILY 12/25/14 Omeprazole [Prilosec] 40 mg PO DAILY 11/11/17 Ciprofloxacin HCl [Cipro 500 MG Tablet] 500 mg PO BID #14 tab 12/29/20 Gabapentin 600 mg PO TID #30 tablet 12/29/20 L.acidoph,Paracasei, B.lactis [Probiotic] 1 each PO TID #30 capsule 12/29/20 metroNIDAZOLE [Flagyl] 500 mg PO Q8H #21 tablet 12/29/20 New Medications: Ciprofloxacin HCl [Cipro 500 MG Tablet] 500 mg PO BID #14 tab metroNIDAZOLE [Flagyl] 500 mg PO Q8H #21 tablet Gabapentin 600 mg PO TID #30 tablet L.acidoph,Paracasei, B.lactis [Probiotic] 1 each PO TID #30 capsule Physician Discharge Instructions: Patient presented Abdominal pain/diarrhea/leukocytosis secondary to ileitis and UTI. CT scan revealed inflammation to the ileum. The patient was admitted for IV antibiotic treatment. Patient has done well. Blood and urine cultures negative. Patient was slightly dehydrated. This improved with IV fluid hydration. Renal function back to baseline. His diet has been able to be advanced to a soft diet without significant nausea, vomiting or abdominal pain. Patient was able to have a bowel movement without difficulty. At discharge no significant pain noted. At discharge patient will continue with Cipro 500 mg twice daily and Flagyl 500 mg 3 times a day for 7 days. Patient will also continue with probiotic 3 times a day. At discharge patient will continue with a soft diet and advance to a heart healthy diet. Recommend follow up with GI within 1 week to follow up this hospitalization. Patient already sees GI. Patient will likely require colonoscopy in 6-8 weeks. This can be done with the help of GI. CT also showed a 2 cm cystic mass within the pancreas. This has increased in size since 2014. It measured 1.5 cm in the past. This is suspicious for intraductal papillary mucinous neoplasm. Recommend follow up with GI who he already sees as an outpatient. Patient will likely have to have an outpatient ERCP with biopsy. This will need to be further addressed by GI. Patient with hypertension. This appears stable. At discharge patient will continue with lisinopril 20 mg daily. Recommend to maintain blood pressure less than 130/80. Further adjustment can be done by his PCP. Patient with hyperlipidemia. At discharge patient will continue with Lipitor 20 mg daily. Patient with depression. At discharge patient will continue with Celexa 20 mg daily. Patient with GERD. At discharge patient will continue with Prilosec 40 mg daily. Patient with recent history of shingles. This occurred in September. He had been treated with Neurontin but this was changed to another medication. He prefers to continue with Neurontin. Patient will be given it Neurontin 600 mg 3 times a day as needed for pain. Recommend follow up with his PCP to further address and refill medication. Diet: AHA Activity: Ad chucho Followup: Juan Carlos Cornejo MD [Primary Care Provider] - Time spent managing pt's care (in minutes): 55
[2020-12-29] MEDS: CEFTRIAXONE/SWI 1gm 1 GM/10 ML SYR IV SCH (09:44)
[2020-12-29] MEDS: ENOXAPARIN 40 MG/0.4 ML SQ SCH (09:44)
[2020-12-29] MEDS: ASPIRIN EC 81 MG TAB PO SCH (09:44)
[2020-12-29] MEDS: GABAPENTIN 300 MG CAP PO SCH (09:44)
[2020-12-29 10:48] VITALS: BP 143/79; TEMP 97
== END 2020-12-29 11:30 | disposition home or self-care (01) ==
LOC: ER 16:52 → ERHOLD 21:49 → 2ND 23:41
PROVIDERS: ADMIT Family Medicine; ATTEND Family Medicine
DX: K52.9 Noninfective gastroenteritis and colitis, unspecified (principal); N39.0 Urinary tract infection, site not specified; E87.5 Hyperkalemia; N28.9 Disorder of kidney and ureter, unspecified; K86.9 Disease of pancreas, unspecified; I10 Essential (primary) hypertension; Z20.822 Contact with and (suspected) exposure to COVID-19; E78.5 Hyperlipidemia, unspecified; E66.9 Obesity, unspecified; Z68.30 Body mass index [BMI] 30.0-30.9, adult; F32.9 Major depressive disorder, single episode, unspecified; B02.9 Zoster without complications; Z86.73 Personal history of transient ischemic attack (TIA), and cerebral infarction without residual deficits; I25.2 Old myocardial infarction
CPT/HCPCS: 96365; 96367; 96361; 87040 ×2; 87088; 85025 ×3; 87086; 80048; 36415 ×2; 83735 ×3; 84132; 85610; 80061; 82947; 80076; 83605 ×2; 84443; 81003; 84484; 84439; 83690 ×2; 80053 ×2; 84145 ×2; 83880; 74177; 71045; 94010; 99285; U0003; J1650 ×2; J0696 ×2; J0692; J7040 ×2; J7030 ×2; J2405; G0378 ×3; 81015

== ENCOUNTER 2022-02-11 10:18 | Observation (INO) | payer OTHER ==
--- OUTSIDE RECORDS SUMMARY | 2022-02-11 10:23 | XMS REPORT | Continuity of Care Document ---
:1945 Author Organization [facility] t Address [address] [place] [address] [address] [place] [address] Care Team Providers Name Role Phone Cornejo E Primary Care Physician Chelsea SÁNCHEZ, T Attending Clinician Unavailable Only, Db Test Attending Clinician Unavailable Tracie TORRES Attending Clinician Singer AMADOR Attending Clinician Doctor Unassigned, Name Attending Clinician Unavailable Only, Test Attending Clinician Unavailable Emerita MONTEZ Attending Clinician EMERITA Attending Clinician Unavailable Pob, Lab Main Attending Clinician Unavailable Heri Moura MD Attending Clinician Heri MOURA Attending Clinician Unavailable Ajibade_O_AH Attending Clinician Unavailable Ige-Odunuga_J_AH Attending Clinician Unavailable Javy Merino MD Attending Clinician Ajibade_O_AH Admitting Clinician Unavailable Ige-[place]un[place]_J_AH Admitting Clinician Unavailable Payers Payer Name Policy Type Policy Number Effective Date Expiration Date Lary JAY PLUS [id number] 2020 CLASSIC/VALUE 00:00:00 MEDICARE PART A \\T\\ [id number] 2008 B 00:00:00 COMMERCIAL [id number] 2013 NON-CONTRACT 00:00:00 GENERIC WELLCARE OF [place] - [id number] 2019 [place] (MEDICARE 00:00:00 REPLACEMENT/ADVANTA GE - HMO) Problems Condition Condition Condition Status Onset Resolution Last Treating Co mments Source Name Details Category Date Date Treatment Clinician Date Obesity Obesity Disease Active 2016-10 Univers 2 ity of 00:00: [place] 00 [facility] Essential Essential Disease Active 2014-10 Uni vers hypertensi hypertensi 11 it y of on on 00:00: [place] 00 [facility] Depression Depression Disease Active 2014-10 U nivers 11-04 ity of 00:00: [place] [facility] Hyperchole Hyperchole Disease Active 2014-10 U nivers steremia steremia 11-04 ity of 00:00: [place] 00 [facility] Bilateral Bilateral Disease Active 2014-10 Uni vers hearing hearing 11-04 ity of loss loss 00:00: [place] 00 [facility] Allergies, Adverse Reactions, Alerts Allergy Allergy Status Severity Reaction(s) Onset Inactive Treating Comm ents Source Name Type Date Date Clinician codeine DA Active SV 2018- [facility] 1[facility]13 [place] [facility] adhesive DA Active SV 2018-10 [facility] tape 1-13 [place] [facility] meloxica DA Active MO 2018-10 [facility] m 1-13 [place] [facility] methocar DA Active U 2018-10 [facility] bamol 1-13 [place] 00:[facility] codeine DA Active SV 2018- [facility] 0-24 [place] 00:[facility] adhesive DA Active SV 2018-10 [facility] tape 0-24 [place] 00:[facility] meloxica DA Active MO 2018-1 [facility] m 0-24 [place] [facility] HYDROCOD DRUG Active ITCHING 2018- Univers ONE-ACET 2-21 ity of AMINOPHE 00:00: [place] N 00 Medical Branch Hydrocod Propensi Active Itching Unive rs one-Acet ty to 2-21 ity of aminophe adverse 00:00: [place] n reaction 00 Medical s Branch adhesive DA Active SV 2018- [facility] tape 2-12 [place] 00:[facility] codeine DA Active SV 2018- [facility] 1-23 [facility] [place] adhesive DA Active SV 2018- [facility] tape 1-23 [facility] [place] CODEINE DRUG Active Med Hives 2014-10 Univers INGREDI 0-05 ity of 00:00: [place] 00 [facility] Codeine Propensi Active Hives 2014-10 Univers ty to 0-05 ity of adverse 00:00: [place] reaction 00 Medical s Branch Social History Social Habit Start Date Stop Date Quantity Comments Source History of Chews Tobacco University of tobacco use [facility] Exposure to Not sure [place] of SARS-CoV-2 [facility] (event) [place] Alcohol intake 2019-08-03 2019-08-03 1.43 /d University of 00:00:00 00:00:00 [facility] Tobacco use and 2019-04-05 2019-04-05 Former user Universi ty of exposure 00:00:00 00:00:00 [facility] Tobacco Comment 2017-11-02 2017-11-02 3-4 cigars daily, Un iversity of 00:00:00 00:00:00 < 1 year; did [place] [facility] smoke cigarettes x Branch 2-3 years while in [employer] Sex Assigned [birth year] Universit y of 00:00:00 00:00:00 [facility] Smoking Status Start Date Stop Date Source Former smoker 2019-04-05 00:00:00 2019-04-05 00:00:00 Universi ty [facility] Medications Ordered Filled Start Stop Current Ordering Indication Dosage Frequency Signature Comments Components Source Medication Medication Date Date Medication? Clinician (SIG) Name Name gabapentin Yes [id number] 300mg Take 1 U nivers 300 mg 1-04 capsule by ity of capsule 00:00: mouth 3 (three) Medical times [place] daily. methylPREDN Yes [id number] Take by Univers ISolone 1-04 mouth ity of (MEDROL, 00:00: SEE-INSTRU Ab as AGUSTIN,) 4 mg 00 CTIONS. Medica l tablets follow Branch package directions acyclovir Yes [id number] 800mg Take 1 Un anshul 800 mg 1-04 tablet by ity of tablet 00:00: mouth 5 (five) Medical times Branch daily. gabapentin 2021-0 Yes [id number] 300mg Take 1 U nivers 300 mg 1-04 capsule by ity of capsule 00:00: mouth 3 (three) Medical times Branch daily. methylPREDN 2021-0 Yes [id number] Take by Univers ISolone 1-04 mouth ity of (MEDROL, 00:00: SEE-INSTRU [place] AGUSTIN,) 4 mg 00 CTIONS. Medica l tablets follow Branch package directions acyclovir 2021-0 Yes [id number] 800mg Take 1 Un anshul 800 mg 1-04 tablet by ity of tablet 00:00: mouth 5 (five) Medical times Branch daily. gabapentin 2021-0 Yes [id number] 300mg Take 1 U nivers 300 mg 1-04 capsule by ity of capsule 00:00: mouth 3 (three) Medical times Branch daily. methylPREDN 2021-0 Yes [id number] Take by Univers ISolone 1-04 mouth ity of (MEDROL, 00:00: SEE-INSTRU [place] AGUSTIN,) 4 mg 00 CTIONS. Medica l tablets follow Branch package directions acyclovir 2021-0 Yes [id number] 800mg Take 1 Un anshul 800 mg 1-04 tablet by ity of tablet 00:00: mouth 5 (five) Medical times Branch daily. gabapentin 2021-0 Yes [id number] 300mg Take 1 U nivers 300 mg 1-04 capsule by ity of capsule 00:00: mouth 3 (three) Medical times Branch daily. methylPREDN 2021-0 Yes [id number] Take by Univers ISolone 1-04 mouth ity of (MEDROL, 00:00: SEE-INSTRU Ab as AGUSTIN,) 4 mg 00 CTIONS. Medica l tablets follow Branch package directions acyclovir 2021-0 Yes [id number] 800mg Take 1 Un anshul 800 mg 1-04 tablet by ity of tablet 00:00: mouth 5 (five) Medical times Branch daily. acyclovir 2021-0 2021- No [id number] 800mg Take 1 U nivers 800 mg 1-04 01-04 tablet by ity of tablet 00:00: 00:00 mouth 5 [place] 00 :00 (five) Medical times Branch daily for 7 days. gabapentin 2021-0 2021- No [id number] 300mg Take 1 Univers 300 mg 10-28 capsule by ity of capsule 00:00: 00:00 mouth 3 [place] 00 :00 (three) [facility] times [place] daily for 10 days. methylPREDN 2020- No [id number] Take by Univers ISolone 10-28 mouth ity of (MEDROL, 00:00: 00:00 [place] AGUSTIN,) 4 mg 00 :00 CTIONS. Medica l tablets follow [place] package directions CITALOPRAM 2018-10 Yes TAKE 1 Unive rs 20 mg 1-13 TABLET ity of tablet 00:00: EVERY DAY [address] CITALOPRAM 2018-10 Yes TAKE 1 Unive rs 20 mg 1-13 TABLET ity of tablet 00:00: EVERY DAY [address] CITALOPRAM 2018-10 Yes TAKE 1 Unive rs 20 mg 1-13 TABLET ity of tablet 00:00: EVERY DAY [address] CITALOPRAM 2018- Yes TAKE 1 Unive rs 20 mg 1-13 TABLET ity of tablet 00:00: EVERY DAY [address] CITALOPRAM 2018- Yes TAKE 1 Unive rs 20 mg 1-13 TABLET ity of tablet 00:00: EVERY DAY [address] CITALOPRAM 2018- Yes TAKE 1 Unive rs 20 mg 1-13 TABLET ity of tablet 00:00: EVERY DAY [address] CITALOPRAM 2018- Yes TAKE 1 Unive rs 20 mg 1-13 TABLET ity of tablet 00:00: EVERY DAY [address] CITALOPRAM 2018- Yes TAKE 1 Unive rs 20 mg 1-13 TABLET ity of tablet 00:00: EVERY DAY [address] CITALOPRAM 2018- Yes TAKE 1 Unive rs 20 mg 1-13 TABLET ity of tablet 00:00: EVERY DAY [address] CITALOPRAM 2018- Yes TAKE 1 Unive rs 20 mg 1-13 TABLET ity of tablet 00:00: EVERY DAY [address] CITALOPRAM 2018- Yes TAKE 1 Unive rs 20 mg 1-13 TABLET ity of tablet 00:00: EVERY DAY [address] CITALOPRAM 2018- Yes TAKE 1 Unive rs 20 mg 1-13 TABLET ity of tablet 00:00: EVERY DAY [place] [address] Medical Branch CITALOPRAM 2018-10 Yes TAKE 1 Unive rs 20 mg 1-13 TABLET ity of tablet 00:00: EVERY DAY [place] 00 [facility] Branch CITALOPRAM 2018-10 Yes TAKE 1 Unive rs 20 mg 1-13 TABLET ity of tablet 00:00: EVERY DAY [place] 00 Medical Branch hydroCHLORO 2018- Yes [id number] 25mg Take 1 Univers thiazide 25 0-10 tablet by ity of mg tablet 00:00: mouth [place] 00 daily. Medical Branch hydroCHLORO 2018-10 Yes [id number] 25mg Take 1 Univers thiazide 25 0-10 tablet by ity of mg tablet 00:00: mouth [place] 00 daily. Medical Branch hydroCHLORO 2018-10 Yes [id number] 25mg Take 1 Univers thiazide 25 0-10 tablet by ity of mg tablet 00:00: mouth [place] 00 daily. Medical Branch hydroCHLORO 2018- Yes [id number] 25mg Take 1 Univers thiazide 25 0-10 tablet by ity of mg tablet 00:00: mouth [place] 00 daily. Medical Branch hydroCHLORO 2018- Yes [id number] 25mg Take 1 Univers thiazide 25 0-10 tablet by ity of mg tablet 00:00: mouth [place] 00 daily. Medical Branch hydroCHLORO 2018-10 Yes [id number] 25mg Take 1 Univers thiazide 25 0-10 tablet by ity of mg tablet 00:00: mouth [place] 00 daily. Medical Branch hydroCHLORO 2018-10 Yes [id number] 25mg Take 1 Univers thiazide 25 0-10 tablet by ity of mg tablet 00:00: mouth [place] 00 daily. Medical Branch hydroCHLORO 2018- Yes [id number] 25mg Take 1 Univers thiazide 25 0-10 tablet by ity of mg tablet 00:00: mouth [place] 00 daily. Medical Branch hydroCHLORO 2018-10 Yes [id number] 25mg Take 1 Univers thiazide 25 0-10 tablet by ity of mg tablet 00:00: mouth [place] 00 daily. Medical Branch hydroCHLORO 2018- Yes [id number] 25mg Take 1 Univers thiazide 25 0-10 tablet by ity of mg tablet 00:00: mouth [place] 00 daily. Medical Branch hydroCHLORO 2018- Yes [id number] 25mg Take 1 Univers thiazide 25 0-10 tablet by ity of mg tablet 00:00: mouth [place] 00 daily. Medical Branch hydroCHLORO 2018-1 Yes [id number] 25mg Take 1 Univers thiazide 25 0-10 tablet by ity of mg tablet 00:00: mouth 00 daily. Medical Branch hydroCHLORO 2018-10 Yes [id number] 25mg Take 1 Univers thiazide 25 0-10 tablet by ity of mg tablet 00:00: mouth 00 daily. Medical Branch hydroCHLORO 2018-10 Yes [id number] 25mg Take 1 Univers thiazide 25 0-10 tablet by ity of mg tablet 00:00: mouth 00 daily. Medical Branch LISINOPRIL 2018-10 Yes [id number] TAKE 1 U nivers 20 mg 0-08 TABLET ity of tablet 00:00: EVERY DAY [place] [facility] ATORVASTATI 2018-10 Yes [id number] TAKE 1 Univers N 80 mg 0-08 TABLET ity of tablet 00:00: EVERY DAY Medical Branch LISINOPRIL 2018-10 Yes [id number] TAKE 1 U nivers 20 mg 0-08 TABLET ity of tablet 00:00: EVERY DAY [place] [facility] ATORVASTATI 2018-10 Yes [id number] TAKE 1 Univers N 80 mg 0-08 TABLET ity of tablet 00:00: EVERY DAY Medical Branch LISINOPRIL 2018-10 Yes [id number] TAKE 1 U nivers 20 mg 0-08 TABLET ity of tablet 00:00: EVERY DAY [place] [facility] ATORVASTATI 2018-10 Yes [id number] TAKE 1 Univers N 80 mg 0-08 TABLET ity of tablet 00:00: EVERY DAY [place] [facility] LISINOPRIL 2019 Yes [id number] TAKE 1 U nivers 20 mg 0-08 TABLET ity of tablet 00:00: EVERY DAY Medical Branch ATORVASTATI 2018-10 Yes [id number] TAKE 1 Univers N 80 mg 0-08 TABLET ity of tablet 00:00: EVERY DAY [place] [facility] LISINOPRIL 2019 Yes [id number] TAKE 1 U nivers 20 mg 0-08 TABLET ity of tablet 00:00: EVERY DAY [place] [facility] ATORVASTATI 2018-10 Yes [id number] TAKE 1 Univers N 80 mg 0-08 TABLET ity of tablet 00:00: EVERY DAY [place] [facility] LISINOPRIL 2019- Yes [id number] TAKE 1 U nivers 20 mg 0-08 TABLET ity of tablet 00:00: EVERY DAY [place] [facility] ATORVASTATI 2018-10 Yes [id number] TAKE 1 Univers N 80 mg 0-08 TABLET ity of tablet 00:00: EVERY DAY Medical Branch LISINOPRIL 2019- Yes [id number] TAKE 1 U nivers 20 mg 0-08 TABLET ity of tablet 00:00: EVERY DAY Medical Branch ATORVASTATI 2019- Yes [id number] TAKE 1 Univers N 80 mg 0-08 TABLET ity of tablet 00:00: EVERY DAY Medical Branch LISINOPRIL 2019- Yes [id number] TAKE 1 U nivers 20 mg 0-08 TABLET ity of tablet 00:00: EVERY DAY [place] [facility] ATORVASTATI 2019- Yes [id number] TAKE 1 Univers N 80 mg 0-08 TABLET ity of tablet 00:00: EVERY DAY [place] [facility] LISINOPRIL 2019- Yes [id number] TAKE 1 U nivers 20 mg 0-08 TABLET ity of tablet 00:00: EVERY DAY [place] [facility] ATORVASTATI 2019- Yes [id number] TAKE 1 Univers N 80 mg 0-08 TABLET ity of tablet 00:00: EVERY DAY Medical Branch LISINOPRIL 2019- Yes [id number] TAKE 1 U nivers 20 mg 0-08 TABLET ity of tablet 00:00: EVERY DAY [place] [facility] ATORVASTATI 2019- Yes [id number] TAKE 1 Univers N 80 mg 0-08 TABLET ity of tablet 00:00: EVERY DAY [place] [facility] LISINOPRIL 2019- Yes [id number] TAKE 1 U nivers 20 mg 0-08 TABLET ity of tablet 00:00: EVERY DAY Medical Branch ATORVASTATI 2019- Yes [id number] TAKE 1 Univers N 80 mg 0-08 TABLET ity of tablet 00:00: EVERY DAY [place] [facility] LISINOPRIL 2019- Yes [id number] TAKE 1 U nivers 20 mg 0-08 TABLET ity of tablet 00:00: EVERY DAY [place] [facility] ATORVASTATI 2019- Yes [id number] TAKE 1 Univers N 80 mg 0-08 TABLET ity of tablet 00:00: EVERY DAY [place] [facility] LISINOPRIL 2019- Yes [id number] TAKE 1 U nivers 20 mg 0-08 TABLET ity of tablet 00:00: EVERY DAY [place] [facility] ATORVASTATI 2019- Yes [id number] TAKE 1 Univers N 80 mg 0-08 TABLET ity of tablet 00:00: EVERY DAY Medical Branch LISINOPRIL 2018-10 Yes [id number] TAKE 1 U nivers 20 mg 0-08 TABLET ity of tablet 00:00: EVERY DAY [place] [facility] ATORVASTATI 2018-10 Yes [id number] TAKE 1 Univers N 80 mg 0-08 TABLET ity of tablet 00:00: EVERY DAY [place] [facility] CITALOPRAM Yes TAKE 1 Unive rs 20 mg 9-06 TABLET ity of tablet 00:00: EVERY DAY [place] [facility] mometasone Yes [id number] Apply to Univers 0.1 % cream 7-25 area(s) 2 ity of 00:00: (two) [place] 00 times Medical daily as Branch needed for Rash or Itching. mometasone 2018- Yes [id number] Apply to Univers 0.1 % cream 7-25 area(s) 2 ity of 00:00: (two) [place] 00 times Medical daily as Branch needed for Rash or Itching. mometasone 2018- Yes [id number] Apply to Univers 0.1 % cream 7-25 area(s) 2 ity of 00:00: (two) [place] 00 times Medical daily as Branch needed for Rash or Itching. mometasone 2018-0 Yes [id number] Apply to Univers 0.1 % cream 7-25 area(s) 2 ity of 00:00: (two) [place] 00 times Medical daily as Branch needed for Rash or Itching. mometasone 2018- Yes [id number] Apply to Univers 0.1 % cream 7-25 area(s) 2 ity of 00:00: (two) [place] 00 times Medical daily as Branch needed for Rash or Itching. mometasone 2019-0 Yes [id number] Apply to Univers 0.1 % cream 7-25 area(s) 2 ity of 00:00: (two) [place] 00 times Medical daily as Branch needed for Rash or Itching. mometasone 2019-0 Yes [id number] Apply to Univers 0.1 % cream 7-25 area(s) 2 ity of 00:00: (two) [place] 00 times Medical daily as Branch needed for Rash or Itching. mometasone 2018-0 Yes [id number] Apply to Univers 0.1 % cream 7-25 area(s) 2 ity of 00:00: (two) [place] 00 times Medical daily as Branch needed for Rash or Itching. mometasone 2019-0 Yes [id number] Apply to Univers 0.1 % cream 7-25 area(s) 2 ity of 00:00: (two) [place] 00 times Medical daily as Branch needed for Rash or Itching. mometasone 2019-0 Yes [id number] Apply to Univers 0.1 % cream 7-25 area(s) 2 ity of 00:00: (two) [place] 00 times Medical daily as Branch needed for Rash or Itching. mometasone 2019-0 Yes [id number] Apply to Univers 0.1 % cream 7-25 area(s) 2 ity of 00:00: (two) [place] 00 times Medical daily as Branch needed for Rash or Itching. mometasone 2019-0 Yes [id number] Apply to Univers 0.1 % cream 7-25 area(s) 2 ity of 00:00: (two) [place] 00 times Medical daily as Branch needed for Rash or Itching. mometasone 2019-0 Yes [id number] Apply to Univers 0.1 % cream 7-25 area(s) 2 ity of 00:00: (two) [place] 00 times Medical daily as Branch needed for Rash or Itching. mometasone 2019-0 Yes [id number] Apply to Univers 0.1 % cream 7-25 area(s) 2 ity of 00:00: (two) [place] 00 times Medical daily as Branch needed for Rash or Itching. mometasone 2019-0 Yes [id number] Apply to Univers 0.1 % cream 7-25 area(s) 2 ity of 00:00: (two) [place] 00 times Medical daily as Branch needed for Rash or Itching. mometasone 2019-0 Yes [id number] Apply to Univers 0.1 % cream 7-25 area(s) 2 ity of 00:00: (two) [place] 00 times Medical daily as Branch needed for Rash or Itching. mometasone 2019-0 Yes [id number] Apply to Univers 0.1 % cream 7-25 area(s) 2 ity of 00:00: (two) [place] 00 times Medical daily as Branch needed for Rash or Itching. memantine 2019-0 Yes 10mg Take 10 mg Un anshul (NAMENDA) 6-12 by mouth ity of 10 mg 16:33: daily. [place] tablet 49 [facility] memantine 2019-0 Yes 10mg Take 10 mg Un anshul (NAMENDA) 6-12 by mouth ity of 10 mg 16:33: daily. [place] tablet 49 [facility] memantine 2019-0 Yes 10mg Take 10 mg Un anshul (NAMENDA) 6-12 by mouth ity of 10 mg 16:33: daily. [place] tablet 49 [facility] memantine 2019-0 Yes 10mg Take 10 mg Un anshul (NAMENDA) 6-12 by mouth ity of 10 mg 16:33: daily. [place] tablet [address] [place] [address] memantine 2018-0 Yes 10mg Take 10 mg Un anshul (NAMENDA) 6-12 by mouth ity of 10 mg 16:33: daily. [place] tablet [address] [place] [address] memantine 2018-0 Yes 10mg Take 10 mg Un anshul (NAMENDA) 6-12 by mouth ity of 10 mg 16:33: daily. [place] tablet [address] [place] [address] memantine 0 Yes 10mg Take 10 mg Un anshul (NAMENDA) 6-12 by mouth ity of 10 mg 16:33: daily. [place] tablet [address] [place] [address] memantine 2018-0 Yes 10mg Take 10 mg Un anshul (NAMENDA) 6-12 by mouth ity of 10 mg 16:33: daily. [address] memantine 2018-0 Yes 10mg Take 10 mg Un anshul (NAMENDA) 6-12 by mouth ity of 10 mg 16:33: daily. [address] memantine 2018-0 Yes 10mg Take 10 mg Un anshul (NAMENDA) 6-12 by mouth ity of 10 mg 16:33: daily. [place] tablet [address] [place] [address] memantine 2019-0 Yes 10mg Take 10 mg Un anshul (NAMENDA) 6-12 by mouth ity of 10 mg 16:33: daily. [place] tablet 49 [facility] memantine 2019-0 Yes 10mg Take 10 mg Un anshul (NAMENDA) 6-12 by mouth ity of 10 mg 16:33: daily. [place] tablet [address] [place] [address] memantine 2019-0 Yes 10mg Take 10 mg Un anshul (NAMENDA) 6-12 by mouth ity of 10 mg 16:33: daily. [place] tablet 49 Medical Branch memantine 2019-0 Yes 10mg Take 10 mg Un anshul (NAMENDA) 6-12 by mouth ity of 10 mg 16:33: daily. [place] tablet 49 Medical Branch aspirin 2019-0 Yes 325mg Take 325 Unive rs E.C. 6-12 mg by ity of (ASPIR-ABRIL 16:28: mouth [place] ) 325 mg EC 34 daily. Medica l tablet Branch aspirin 2019-0 Yes 325mg Take 325 Unive rs E.C. 6-12 mg by ity of (ASPIR-ABRIL 16:28: mouth [place] ) 325 mg EC 34 daily. Medica l tablet Branch aspirin 2019-0 Yes 325mg Take 325 Unive rs E.C. 6-12 mg by ity of (ASPIR-ABRIL 16:28: mouth [place] ) 325 mg EC 34 daily. Medica l tablet Branch aspirin 2019-0 Yes 325mg Take 325 Unive rs E.C. 6-12 mg by ity of (ASPIR-ABRIL 16:28: mouth [place] ) 325 mg EC 34 daily. Medica l tablet Branch aspirin 2019-0 Yes 325mg Take 325 Unive rs E.C. 6-12 mg by ity of (ASPIR-ABRIL 16:28: mouth [place] ) 325 mg EC 34 daily. Medica l tablet Branch aspirin 2019-0 Yes 325mg Take 325 Unive rs E.C. 6-12 mg by ity of (ASPIR-ABRIL 16:28: mouth [place] ) 325 mg EC 34 daily. Medica l tablet Branch aspirin 2019-0 Yes 325mg Take 325 Unive rs E.C. 6-12 mg by ity of (ASPIR-ABRIL 16:28: mouth [place] ) 325 mg EC 34 daily. Medica l tablet Branch aspirin 2019-0 Yes 325mg Take 325 Unive rs E.C. 6-12 mg by ity of (ASPIR-ABRIL 16:28: mouth [place] ) 325 mg EC 34 daily. Medica l tablet Branch aspirin 2019-0 Yes 325mg Take 325 Unive rs E.C. 6-12 mg by ity of (ASPIR-ABRIL 16:28: mouth [place] ) 325 mg EC 34 daily. Medica l tablet Branch aspirin 2019-0 Yes 325mg Take 325 Unive rs E.C. 6-12 mg by ity of (ASPIR-ABRIL 16:28: mouth [place] ) 325 mg EC 34 daily. Medica l tablet Branch aspirin 2018-0 Yes 325mg Take 325 Unive rs E.C. 6-12 mg by ity of (ASPIR-ABRIL 16:28: mouth [place] ) 325 mg EC 34 daily. Medica l tablet Branch aspirin 2018-0 Yes 325mg Take 325 Unive rs E.C. 6-12 mg by ity of (ASPIR-ABRIL 16:28: mouth [place] ) 325 mg EC 34 daily. Medica l tablet Branch aspirin 2018-0 Yes 325mg Take 325 Unive rs E.C. 6-12 mg by ity of (ASPIR-ABRIL 16:28: mouth [place] ) 325 mg EC 34 daily. Medica l tablet Branch aspirin 2018-0 Yes 325mg Take 325 Unive rs E.C. 6-12 mg by ity of (ASPIR-ABRIL 16:28: mouth [place] ) 325 mg EC 34 daily. Medica l tablet Branch memantine 0 Yes 10mg Take 10 mg Un anshul (NAMENDA) 6-12 by mouth ity of 10 mg 11:33: daily. [place] tablet 49 Medical Branch memantine 0 Yes 10mg Take 10 mg Un anshul (NAMENDA) 6-12 by mouth ity of 10 mg 11:33: daily. [place] tablet 49 Medical Branch memantine 0 Yes 10mg Take 10 mg Un anshul (NAMENDA) 6-12 by mouth ity of 10 mg 11:33: daily. [place] tablet 49 Medical Branch aspirin 0 Yes 325mg Take 325 Unive rs E.C. 6-12 mg by ity of (ASPIR-ABRIL 11:28: mouth [place] ) 325 mg EC 34 daily. Medica l tablet Branch aspirin 2018-0 Yes 325mg Take 325 Unive rs E.C. 6-12 mg by ity of (ASPIR-ABRIL 11:28: mouth [place] ) 325 mg EC 34 daily. Medica l tablet Branch aspirin 2018-0 Yes 325mg Take 325 Unive rs E.C. 6-12 mg by ity of (ASPIR-ABRIL 11:28: mouth [place] ) 325 mg EC 34 daily. Medica l tablet Branch LISINOPRIL Yes [id number] TAKE 1 U nivers 20 mg 8-08 TABLET BY ity of tablet 00:00: MOUTH ONCE [place] 00 DAILY Medical Branch LISINOPRIL 0 Yes [id number] TAKE 1 U nivers 20 mg 8-08 TABLET BY ity of tablet 00:00: MOUTH ONCE [place] 00 DAILY Medical Branch LISINOPRIL 2018-0 Yes [id number] TAKE 1 U nivers 20 mg 8-08 TABLET BY ity of tablet 00:00: MOUTH ONCE [place] 00 DAILY Medical Branch omeprazole 2018-0 Yes [id number] 40mg Take 1 Univers (PRILOSEC) 8-06 capsule by ity of 40 mg 00:00: mouth [place] capsule 00 daily. Medical Branch omeprazole 2017-0 Yes [id number] 40mg Take 1 Univers (PRILOSEC) 8-06 capsule by ity of 40 mg 00:00: mouth [place] capsule 00 daily. Medical Branch omeprazole 2017-0 Yes [id number] 40mg Take 1 Univers (PRILOSEC) 8-06 capsule by ity of 40 mg 00:00: mouth [place] capsule 00 daily. Medical Branch omeprazole 2017-0 Yes [id number] 40mg Take 1 Univers (PRILOSEC) 8-06 capsule by ity of 40 mg 00:00: mouth [place] capsule 00 daily. Medical Branch omeprazole 2017-0 Yes [id number] 40mg Take 1 Univers (PRILOSEC) 8-06 capsule by ity of 40 mg 00:00: mouth [place] capsule 00 daily. Medical Branch omeprazole 2017-0 Yes [id number] 40mg Take 1 Univers (PRILOSEC) 8-06 capsule by ity of 40 mg 00:00: mouth [place] capsule 00 daily. Medical Branch omeprazole 2017-0 Yes [id number] 40mg Take 1 Univers (PRILOSEC) 8-06 capsule by ity of 40 mg 00:00: mouth [place] capsule 00 daily. Medical Branch omeprazole 2017-0 Yes [id number] 40mg Take 1 Univers (PRILOSEC) 8-06 capsule by ity of 40 mg 00:00: mouth [place] capsule 00 daily. Medical Branch omeprazole 2017-0 Yes [id number] 40mg Take 1 Univers (PRILOSEC) 8-06 capsule by ity of 40 mg 00:00: mouth [place] capsule 00 daily. Medical Branch omeprazole 2017-0 Yes [id number] 40mg Take 1 Univers (PRILOSEC) 8-06 capsule by ity of 40 mg 00:00: mouth [place] capsule 00 daily. Medical Branch omeprazole 2018-0 Yes [id number] 40mg Take 1 Univers (PRILOSEC) 8-06 capsule by ity of 40 mg 00:00: mouth [place] capsule 00 daily. Medical Branch omeprazole 2017-0 Yes [id number] 40mg Take 1 Univers (PRILOSEC) 8-06 capsule by ity of 40 mg 00:00: mouth [place] capsule 00 daily. Medical Branch citalopram 2018-0 Yes TAKE 1 Unive rs 20 mg 8-06 TABLET ity of tablet 00:00: EVERY DAY [place] 00 Medical Branch atorvastati 2018-0 Yes [id number] TAKE 1 Univers n 80 mg 8-06 TABLET ity of tablet 00:00: EVERY DAY [place] 00 Medical Branch omeprazole 2018-0 Yes [id number] 40mg Take 1 Univers (PRILOSEC) 8-06 capsule by ity of 40 mg 00:00: mouth [place] capsule 00 daily. Medical Branch citalopram 2017-0 Yes TAKE 1 Unive rs 20 mg 8-06 TABLET ity of tablet 00:00: EVERY DAY [place] 00 Medical Branch atorvastati 2018-0 Yes [id number] TAKE 1 Univers n 80 mg 8-06 TABLET ity of tablet 00:00: EVERY DAY [place] 00 Medical Branch omeprazole 2018-0 Yes [id number] 40mg Take 1 Univers (PRILOSEC) 8-06 capsule by ity of 40 mg 00:00: mouth [place] capsule 00 daily. Medical Branch atorvastati 2018-0 Yes [id number] TAKE 1 Univers n 80 mg 8-06 TABLET ity of tablet 00:00: EVERY DAY [place] 00 Medical Branch omeprazole 2018-0 Yes [id number] 40mg Take 1 Univers (PRILOSEC) 8-06 capsule by ity of 40 mg 00:00: mouth [place] capsule 00 daily. Medical Branch omeprazole 2018-0 Yes [id number] 40mg Take 1 Univers (PRILOSEC) 8-06 capsule by ity of 40 mg 00:00: mouth [place] capsule 00 daily. Medical Branch omeprazole 2018-0 Yes [id number] 40mg Take 1 Univers (PRILOSEC) 8-06 capsule by ity of 40 mg 00:00: mouth [place] capsule 00 daily. Medical Branch citalopram 2018-0 2019- No TAKE 1 Univ ers 20 mg 8-06 09-06 TABLET ity of tablet 00:00: 00:00 EVERY DAY [place] 00 :00 Medical Branch Immunizations Ordered Filled Immunization Date Status Comments Sourc e Immunization Name Name Pneumococcal 13 2019-09-16 Completed Universit y of Conjugate, PCV13 00:00:00 [place] [facility] dical (Prevnar 13) Branch Pneumococcal 13 2019-09-16 Completed Universit y of Conjugate, PCV13 00:00:00 [place] [facility] dical (Prevnar 13) Branch Pneumococcal 13 2019-09-16 Completed Universit y of Conjugate, PCV13 00:00:00 [place] [facility] dical (Prevnar 13) Branch Vital Signs Vital Name Observation Time Observation Value Comments Source Systolic blood 2020-10-28 16:20:00 171 mm[Hg] Univer sity of pressure [facility] Diastolic blood 2020-10-28 16:20:00 66 mm[Hg] Unive rsity of [facility] Heart rate 2020-10-28 16:20:00 72 /min Universi ty [facility] Body temperature 2020-10-28 16:20:00 37.22 [facility]ille [facility] Res[facility] rate 2020-10-28 16:20:00 18 /min [facility] Body weight 2020-10-28 16:20:00 92.534 kg Universi ty [facility] BMI 2020-10-28 16:20:00 30.13 kg/m2 [facility] Oxygen saturation in 2020-10-28 16:20:00 97 /min University Arterial blood by [facility] Pulse oximetry Branch Systolic blood 2020-10-28 16:20:00 171 mm[Hg] Univer sity of pressure [facility] Diastolic blood 2020-10-28 16:20:00 66 mm[Hg] Unive rsity of pressure [facility] Heart rate 2020-10-28 16:20:00 72 /min Universi ty [facility] Body temperature 2020-10-28 16:20:00 37.22 [facility] Respiratory rate 2020-10-28 16:20:00 18 /min [facility] Body weight 2020-10-28 16:20:00 92.534 kg Universi ty [facility] BMI 2020-10-28 16:20:00 30.13 kg/m2 [facility] Oxygen saturation in 2020-10-28 16:20:00 97 /min University Arterial blood by [facility] Pulse oximetry Branch Procedures Procedure Date / Time Performing Clinician Source Performed NOTICE OF PRIVACY 2020-10-28 16:07:48 Doctor Unassigned, No [facility] PRACTICES Name [facility] CONSENT/REFUSAL FOR 2020-10-28 16:07:18 [facility] FECAL LEUKOCYTES 2020-09-07 17:42:00 Hai Moura [facility] CLOSTRIDIUM DIFFICILE 2020-09-07 [facility]:42[facility] FECES CULTURE 2020-09-07 17:41:00 Hai Moura [facility] AMYLASE 2020-09-07 15:04:00 Hai Moura [facility] LIPASE 2020-09-07 15:04:00 Namita Moura Heri [facility] COMP. METABOLIC PANEL 2020-09-07 15:04:00 Hai Moura [facility] ([id number]) [facility] CBC WITH DIFF 2020-09-07 15:04:00 Hai Moura [facility] CONSENT/REFUSAL FOR 2020-09-07 14:40:27 [facility] EXTERNAL PROVIDER 2019-05-31 05:01:00 Doctor Unassigned, No [facility] RECORDS [facility] PATIENT QUESTIONNAIRE 2019-05-18 05:01:00 Doctor Unassigned, No [facility] Encounters Start End Encounter Admission Attending Care Care Encounter Source Date/Time Date/Time Type Type Clinicians Facility Department ID 2021-08-23 Emergency [facility] [id number] Univers 14:43:16 ity [facility] 2021-07-10 2021-07-10 Letter JESSIKA Tran [id number] Univers 00:00:00 00:00:00 (Out) Ifrah SCHULZ [id number] it y [facility] 4.2.7.2.686 Ab as [phone] [facility] [address] [place] 2021-07-09 2021-07-09 Laboratory Only, Ang Db Test [facility] 1.2.8 40.114 [id number] Univers 11:10:14 11:25:14 Only Dwight Hodges [facility] [id number] ity of [place] 4.2.7.2.686 Ab as Faraz?Blea [phone] Ms marlo [address] Medical Office Building 2021-07-09 2021-07-09 Outpatient R [facility] [id number] Univers 11:15:00 11:15:00 [id number] ity [facility] 2021-07-09 2021-07-09 Outpatient R [facility] [id number] Univers 11:15:00 11:15:00 ity [facility] 2020-10-28 2020-10-28 Emergency [facility] [id number] 10:23:00 11:38:00 Shon Tee 350.1.13.10 [place] 4.2.7.2.686 [place] [phone] [facility] 2020-10-28 2020-10-28 Emergency [facility] [id number] Univers 10:23:00 11:38:00 Shon Tee [id number] i ty of [place]2.[place] [phone] [facility] [address] [place] 2020-10-28 2020-10-28 Orders Doctor ROSEN 1.2.840.114 [id number] 00:00:00 00:00:00 Only Unassigned, JAZZ [id number] [facility] 4.2.7.2.686 [phone] [id number] 2020-10-28 2020-10-28 Orders Doctor JESSIKA 1.2.840.114 [id number] Univers 00:00:00 00:00:00 Only Unassigned, JAZZ [id number] ity of [facility] 4.2.7.2.686 Ab as [phone] [address] 2020-09-12 2020-09-12 Laboratory Only, Adc [facility] 1.2.840.114 [id number] 13:54:39 14:09:39 Only Test Nay [id number] [place] 4.2.7.2.686 [place] [phone] [facility] 2020-09-12 2020-09-12 Laboratory Only, [facility] Test [facility] 1.2.840. 114 [id number] Univers 13:54:39 14:09:39 Only EmeritaKatina Nay 350.1.13.10 ity [facility] 4.2.7[address] [place] [phone] 2020-09-12 2020-09-12 Outpatient R EMERITA [facility] [id number] Univers 13:15:00 13:15:00 KATINA ity [facility] 2020-09-12 2020-09-12 Outpatient R [facility] [id number] Univers 09:30:00 09:30:00 [id number] ity [facility] 2020-09-07 2020-09-07 Map Colorer Justin, [facility] 1.2.840.114 [id number] 08:42:58 08:57:58 Visit Lab Main Nay 350.1.13.10 [place] 4.2.7.2.686 Professio [phone] [address] 2020-09-07 2020-09-07 [facility] 1.2.8 40.114 [id number] Univers 08:42:58 08:57:58 Visit Katina Kwok 350.1.13.10 ity Hai Moura 4.2.7.2.686 [place] Professio [phone] Ms dical [address] 2020-09-07 2020-09-07 Outpatient R [facility] [id number] Univers 08:30:00 08:30:00 [id number] ity [facility] 2020-09-07 2020-09-07 Outpatient R HAI MOURA [facility] [id number] Univers 08:30:00 08:30:00 ity [facility] 2020-09-07 2020-09-07 Orders Doctor ORSEN 1.2.840.114 [id number] Univers 00:00:00 00:00:00 Only Unassigned, JAZZ 350.1.13.10 ity of [facility] 4.2.7.2.686 Ab as [phone] [address] 2020-06-20 2020-06-20 Outpatient Ajibade_O_A VFP VFP [phone] [facility] 03:22:00 03:22:00 H [id number] Family Practic e 2020-06-20 2020-06-20 Outpatient Ajibade_O_A VFP VFP [phone] [facility] 03:22:00 03:22:00 H [id number] Family Practic e 2019-12-13 2019-12-13 Outpatient Ige-Odunuga VFP VFP [phone] [facility] 07:22:00 07:22:00 _J_AH [id number] Family Practic e 2019-06-30 2019-06-30 Chaparro Merino [facility] 1.2.840.114 [id number] Univers 00:00:00 00:00:00 [facility] 350.1.13.10 it y of [place] 4.2.7.2.686 Ab as Professio [phone] [facility] [address] [place] Office Building One 2019-05-31 2019-05-31 Orders Doctor JESSIKA 1.2.840.114 [id number] Univers 00:00:00 00:00:00 Only Unassigned, JAZZ 350.1.13.10 ity of [facility] [facility] 4.2.7.2.686 Ab as [phone] [address] 2019-05-18 2019-05-18 Orders Doctor JESSIKA 1.2.840.114 [id number] Univers 00:00:00 00:00:00 Only Unassigned, JAZZ 350.1.13.10 ity of [facility] 4.2.7.2.686 Ab as [phone] [address] Results Test Description Test Time Test Comments Results Result Comments Source FECES CULTURE 2020-09-10 16:38:00 Test Item Value Reference Range Interpretation Comme nts Feces Culture (test code = 625-4) No Salmonella, No Shigella , No Campylobacter, and No E. coli 0157 isolated. ARIK (test code = ARIK) Feces specimens are routinely cultured for Salmonella, Shigella, Campylobacter, and E. coli 0157. [facility] [id number] 04:36:00 Test Item Value Reference Range Interpretation Comments Fecal Leukocytes (test code = Negative Negative 7997622246) Lab Interpretation (test code = Normal 36118-7) [facility] [id number] 04:36:00 Test Item Value Reference Range Interpretation Comments Fecal Leukocytes (test code = Negative Negative 5181983517) Lab Interpretation (test code = Normal 14267-6) [facility] 2020-09-07 20:33:00 Test Item Value Reference Range Interpretation Comments Clostridioides (Clostridium) Negative Negative difficile (test code = 98611-2) Lab Interpretation (test code = Normal 40084-1) [facility] DIFFICILE 2020-09-07 20:33:00 Test Item Value Reference Range Interpretation Comments Clostridioides (Clostridium) Negative Negative difficile (test code = 58665-7) Lab Interpretation (test code = Normal 04835-7) [facility] ([id number])2020-09-07 16:45:00 Test Item Value Reference Range Interpretation Comments NA (test code = 138 mmol/L 135-145 1184161616) K (test code = 5.5 mmol/L 3.5-5 H 3150576380) CL (test code = 104 mmol/L 98-108 7796507621) CO2 TOTAL (test code = 28 mmol/L 23-31 9892391743) AGAP (test code = 2-16 0932248546) BUN (test code = 17 mg/dL 7-23 4514922289) GLUCOSE (test code = 116 mg/dL 70-110 H 5768562773) CREATININE (test code = 1.08 mg/dL 0.6-1.25 2944945003) TOTAL BILI (test code = 0.6 mg/dL 0.1-1.5 7434976157) CALCIUM (test code = 9.1 mg/dL 8.6-10.6 5505139372) T PROTEIN (test code = 6.3 g/dL 6.3-8.2 0486969335) ALBUMIN (test code = 3.9 g/dL 3.5-5 3107092590) ALK PHOS (test code = 100 U/L 34-122 2441477243) ALTv (test code = 25 U/L 5-50 1742-6) AST(SGOT) (test code = 26 U/L 13-40 7350244041) eGFR Calculation mL/min/1.73m2 (Non-) (test code = 4946642344) eGFR Calculation mL/min/1.73m2 () (test code = 7010498502) ARIK (test code = ARIK) Association of Glomerular Filtration Rate (GFR) and Staging of Kidney Disease* + --+ --+ ------+| GFR (mL/min/1.73 m2) ?| With Kidney Damage ?| ?Without Kidney Damage+ --------+ --------+ +| ?>90 ?| ?Stage one ?| ? Normal ?+ ---+ ---+ -------+| ?60-89 ?| ?Stage two ?| ? Decreased GFR ? + --+ --+ ------+| ?30-59 ?| ?Stage three ?| ? Stage three ? + --+ --+ ------+| ?15-29 ?| ?Stage four ? | ? Stage four ?+ ---+ ---+ -------+| ?<15 (or dialysis) ? ?| ?Stage five ? | ? Stage five ?+ ---+ ---+ -------+ *Each stage assumes the associated GFR level has been in effect for at least three months. ?Stages 1 to 5, with or without kidney disease, indicate chronic kidney disease. Notes: Determination of stages one and two (with eGFR >59mL/min/1.73 m2) requires estimation of kidney damage for at least three months as defined by structural or functional abnormalities of the kidney, manifested by either:Pathological abnormalities or Markers of kidney damage (including abnormalities in the composition of the blood or urine or abnormalities in imaging tests). Lab Interpretation Abnormal (test code = 68457-0) [facility] 16:45[facility]00 Test Item Value Reference Range Interpretation Comments LIPASE (test code = 5171037385) 108 U/L 0-220 Lab Interpretation (test code = Normal 00223-4) [facility]. METABOLIC PANEL (28195)2020-09-07 16:45:00 Test Item Value Reference Range Interpretation Comments NA (test code = 138 mmol/L 135-145 4141973074) K (test code = 5.5 mmol/L 3.5-5 H 5704066538) CL (test code = 104 mmol/L 98-108 5095282837) CO2 TOTAL (test code = 28 mmol/L 23-31 0661271731) AGAP (test code = 2-16 4761430518) BUN (test code = 17 mg/dL 7-23 2819672614) GLUCOSE (test code = 116 mg/dL 70-110 H 9045532809) CREATININE (test code = 1.08 mg/dL 0.6-1.25 3603331671) TOTAL BILI (test code = 0.6 mg/dL 0.1-1.9 9066840771) CALCIUM (test code = 9.1 mg/dL 8.6-10.6 8735985899) T PROTEIN (test code = 6.3 g/dL 6.3-8.2 6454337365) ALBUMIN (test code = 3.9 g/dL 3.5-5 1827389464) ALK PHOS (test code = 100 U/L 34-122 7195463526) ALTv (test code = 25 U/L 5-50 1742-6) AST(SGOT) (test code = 26 U/L 13-40 2987239624) eGFR Calculation mL/min/1.73m2 (Non-) (test code = 0815261328) eGFR Calculation mL/min/1.73m2 () (test code = 4182432092) ARIK (test code = ARIK) Association of Glomerular Filtration Rate (GFR) and Staging of Kidney Disease* + --+ --+ ------+| GFR (mL/min/1.73 m2) ?| With Kidney Damage ?| ?Without Kidney Damage+ --------+ --------+ +| ?>90 ?| ?Stage one ?| ? Normal ?+ ---+ ---+ -------+| ?60-89 ?| ?Stage two ?| ? Decreased GFR ? + --+ --+ ------+| ?30-59 ?| ?Stage three ?| ? Stage three ? + --+ --+ ------+| ?15-29 ?| ?Stage four ? | ? Stage four ?+ ---+ ---+ -------+| ?<15 (or dialysis) ? ?| ?Stage five ? | ? Stage five ?+ ---+ ---+ -------+ *Each stage assumes the associated GFR level has been in effect for at least three months. ?Stages 1 to 5, with or without kidney disease, indicate chronic kidney disease. Notes: Determination of stages one and two (with eGFR >59mL/min/1.73 m2) requires estimation of kidney damage for at least three months as defined by structural or functional abnormalities of the kidney, manifested by either:Pathological abnormalities or Markers of kidney damage (including abnormalities in the composition of the blood or urine or abnormalities in imaging tests). Lab Interpretation Abnormal (test code = 05732-4) [facility] 16:45[facility]00 Test Item Value Reference Range Interpretation Comments LIPASE (test code = 7349688005) 108 U/L 0-220 Lab Interpretation (test code = Normal 32275-8) [facility] ([id number])2020-09-07 16:45:00 Test Item Value Reference Range Interpretation Comments NA (test code = 138 mmol/L 135-145 9724700760) K (test code = 5.5 mmol/L 3.5-5 H 6106989820) CL (test code = 104 mmol/L 98-108 8921739903) CO2 TOTAL (test code = 28 mmol/L 23-31 0496215996) AGAP (test code = 2-16 0131871857) BUN (test code = 17 mg/dL 7-23 6547648538) GLUCOSE (test code = 116 mg/dL 70-110 H 5754049363) CREATININE (test code = 1.08 mg/dL 0.6-1.25 0336360352) TOTAL BILI (test code = 0.6 mg/dL 0.1-1.6 8154455692) CALCIUM (test code = 9.1 mg/dL 8.6-10.6 4064901002) T PROTEIN (test code = 6.3 g/dL 6.3-8.2 1727563521) ALBUMIN (test code = 3.9 g/dL 3.5-5 6583665800) ALK PHOS (test code = 100 U/L 34-122 9659941297) ALTv (test code = 25 U/L 5-50 1742-6) AST(SGOT) (test code = 26 U/L 13-40 6913519791) eGFR Calculation mL/min/1.73m2 (Non-) (test code = 3031788364) eGFR Calculation mL/min/1.73m2 () (test code = 3203455492) ARIK (test code = ARIK) Association of Glomerular Filtration Rate (GFR) and Staging of Kidney Disease* + --+ --+ ------+| GFR (mL/min/1.73 m2) ?| With Kidney Damage ?| ?Without Kidney Damage+ --------+ --------+ +| ?>90 ?| ?Stage one ?| ? Normal ?+ ---+ ---+ -------+| ?60-89 ?| ?Stage two ?| ? Decreased GFR ? + --+ --+ ------+| ?30-59 ?| ?Stage three ?| ? Stage three ? + --+ --+ ------+| ?15-29 ?| ?Stage four ? | ? Stage four ?+ ---+ ---+ -------+| ?<15 (or dialysis) ? ?| ?Stage five ? | ? Stage five ?+ ---+ ---+ -------+ *Each stage assumes the associated GFR level has been in effect for at least three months. ?Stages 1 to 5, with or without kidney disease, indicate chronic kidney disease. Notes: Determination of stages one and two (with eGFR >59mL/min/1.73 m2) requires estimation of kidney damage for at least three months as defined by structural or functional abnormalities of the kidney, manifested by either:Pathological abnormalities or Markers of kidney damage (including abnormalities in the composition of the blood or urine or abnormalities in imaging tests). Lab Interpretation Abnormal (test code = 58622-6) [facility]45[facility]00 Test Item Value Reference Range Interpretation Comments LIPASE (test code = 0755436964) 108 U/L 0-220 Lab Interpretation (test code = Normal 67119-9) [facility]. METABOLIC PANEL ([id number])2020-09-07 16:45:00 Test Item Value Reference Range Interpretation Comments NA (test code = 138 mmol/L 135-145 9052609464) K (test code = 5.5 mmol/L 3.5-5 H 2352523931) CL (test code = 104 mmol/L 98-108 7797370808) CO2 TOTAL (test code = 28 mmol/L 23-31 0939530198) AGAP (test code = 2-16 0842214113) BUN (test code = 17 mg/dL 7-23 7370186091) GLUCOSE (test code = 116 mg/dL 70-110 H 8914219921) CREATININE (test code = 1.08 mg/dL 0.6-1.25 7997511672) TOTAL BILI (test code = 0.6 mg/dL 0.1-1.9 1772919834) CALCIUM (test code = 9.1 mg/dL 8.6-10.6 2066618606) T PROTEIN (test code = 6.3 g/dL 6.3-8.2 2104183279) ALBUMIN (test code = 3.9 g/dL 3.5-5 7194608035) ALK PHOS (test code = 100 U/L 34-122 6513110554) ALTv (test code = 25 U/L 5-50 1742-6) AST(SGOT) (test code = 26 U/L 13-40 3569442629) eGFR Calculation mL/min/1.73m2 (Non-) (test code = 5373294520) eGFR Calculation mL/min/1.73m2 () (test code = 7650908664) ARIK (test code = ARIK) Association of Glomerular Filtration Rate (GFR) and Staging of Kidney Disease* + --+ --+ ------+| GFR (mL/min/1.73 m2) ?| With Kidney Damage ?| ?Without Kidney Damage+ --------+ --------+ +| ?>90 ?| ?Stage one ?| ? Normal ?+ ---+ ---+ -------+| ?60-89 ?| ?Stage two ?| ? Decreased GFR ? + --+ --+ ------+| ?30-59 ?| ?Stage three ?| ? Stage three ? + --+ --+ ------+| ?15-29 ?| ?Stage four ? | ? Stage four ?+ ---+ ---+ -------+| ?<15 (or dialysis) ? ?| ?Stage five ? | ? Stage five ?+ ---+ ---+ -------+ *Each stage assumes the associated GFR level has been in effect for at least three months. ?Stages 1 to 5, with or without kidney disease, indicate chronic kidney disease. Notes: Determination of stages one and two (with eGFR >59mL/min/1.73 m2) requires estimation of kidney damage for at least three months as defined by structural or functional abnormalities of the kidney, manifested by either:Pathological abnormalities or Markers of kidney damage (including abnormalities in the composition of the blood or urine or abnormalities in imaging tests). Lab Interpretation Abnormal (test code = 09809-0) [facility]00 Test Item Value Reference Range Interpretation Comments LIPASE (test code = 7734704194) 108 U/L 0-220 Lab Interpretation (test code = Normal 27533-4) [facility] (28116)2020-09-07 16:45:00 Test Item Value Reference Range Interpretation Comments NA (test code = 138 mmol/L 135-145 2070736302) K (test code = 5.5 mmol/L 3.5-5 H 7941686381) CL (test code = 104 mmol/L 98-108 2499699329) CO2 TOTAL (test code = 28 mmol/L 23-31 6910846275) AGAP (test code = 2-16 6513391202) BUN (test code = 17 mg/dL 7-23 6754991801) GLUCOSE (test code = 116 mg/dL 70-110 H 0103077181) CREATININE (test code = 1.08 mg/dL 0.6-1.25 3092387387) TOTAL BILI (test code = 0.6 mg/dL 0.1-1.6 2869307896) CALCIUM (test code = 9.1 mg/dL 8.6-10.6 0113885655) T PROTEIN (test code = 6.3 g/dL 6.3-8.2 4681436917) ALBUMIN (test code = 3.9 g/dL 3.5-5 0352739166) ALK PHOS (test code = 100 U/L 34-122 1744943042) ALTv (test code = 25 U/L 5-50 1742-6) AST(SGOT) (test code = 26 U/L 13-40 6993755119) eGFR Calculation mL/min/1.73m2 (Non-) (test code = 9794630786) eGFR Calculation mL/min/1.73m2 () (test code = 8731204832) ARIK (test code = ARIK) Association of Glomerular Filtration Rate (GFR) and Staging of Kidney Disease* + --+ --+ ------+| GFR (mL/min/1.73 m2) ?| With Kidney Damage ?| ?Without Kidney Damage+ --------+ --------+ +| ?>90 ?| ?Stage one ?| ? Normal ?+ ---+ ---+ -------+| ?60-89 ?| ?Stage two ?| ? Decreased GFR ? + --+ --+ ------+| ?30-59 ?| ?Stage three ?| ? Stage three ? + --+ --+ ------+| ?15-29 ?| ?Stage four ? | ? Stage four ?+ ---+ ---+ -------+| ?<15 (or dialysis) ? ?| ?Stage five ? | ? Stage five ?+ ---+ ---+ -------+ *Each stage assumes the associated GFR level has been in effect for at least three months. ?Stages 1 to 5, with or without kidney disease, indicate chronic kidney disease. Notes: Determination of stages one and two (with eGFR >59mL/min/1.73 m2) requires estimation of kidney damage for at least three months as defined by structural or functional abnormalities of the kidney, manifested by either:Pathological abnormalities or Markers of kidney damage (including abnormalities in the composition of the blood or urine or abnormalities in imaging tests). Lab Interpretation Abnormal (test code = 55057-1) [facility]:45[facility]00 Test Item Value Reference Range Interpretation Comments LIPASE (test code = 0766444816) 108 U/L 0-220 Lab Interpretation (test code = Normal 50807-5) [facility] (55864)2020-09-07 16:45:00 Test Item Value Reference Range Interpretation Comments NA (test code = 138 mmol/L 135-145 2687682591) K (test code = 5.5 mmol/L 3.5-5 H 2724295755) CL (test code = 104 mmol/L 98-108 1949509062) CO2 TOTAL (test code = 28 mmol/L 23-31 5500504032) AGAP (test code = 2-16 3502676014) BUN (test code = 17 mg/dL 7-23 5720745570) GLUCOSE (test code = 116 mg/dL 70-110 H 7155882120) CREATININE (test code = 1.08 mg/dL 0.6-1.25 6075801857) TOTAL BILI (test code = 0.6 mg/dL 0.1-1.4 7671309448) CALCIUM (test code = 9.1 mg/dL 8.6-10.6 6359476621) T PROTEIN (test code = 6.3 g/dL 6.3-8.2 6755744766) ALBUMIN (test code = 3.9 g/dL 3.5-5 8130250122) ALK PHOS (test code = 100 U/L 34-122 8152936192) ALTv (test code = 25 U/L 5-50 1742-6) AST(SGOT) (test code = 26 U/L 13-40 7545134199) eGFR Calculation mL/min/1.73m2 (Non-) (test code = 1042177010) eGFR Calculation mL/min/1.73m2 () (test code = 7176839999) ARIK (test code = ARIK) Association of Glomerular Filtration Rate (GFR) and Staging of Kidney Disease* + --+ --+ ------+| GFR (mL/min/1.73 m2) ?| With Kidney Damage ?| ?Without Kidney Damage+ --------+ --------+ +| ?>90 ?| ?Stage one ?| ? Normal ?+ ---+ ---+ -------+| ?60-89 ?| ?Stage two ?| ? Decreased GFR ? + --+ --+ ------+| ?30-59 ?| ?Stage three ?| ? Stage three ? + --+ --+ ------+| ?15-29 ?| ?Stage four ? | ? Stage four ?+ ---+ ---+ -------+| ?<15 (or dialysis) ? ?| ?Stage five ? | ? Stage five ?+ ---+ ---+ -------+ *Each stage assumes the associated GFR level has been in effect for at least three months. ?Stages 1 to 5, with or without kidney disease, indicate chronic kidney disease. Notes: Determination of stages one and two (with eGFR >59mL/min/1.73 m2) requires estimation of kidney damage for at least three months as defined by structural or functional abnormalities of the kidney, manifested by either:Pathological abnormalities or Markers of kidney damage (including abnormalities in the composition of the blood or urine or abnormalities in imaging tests). Lab Interpretation Abnormal (test code = 56270-7) [facility] Test Item Value Reference Range Interpretation Comments LIPASE (test code = 9579306462) 108 U/L 0-220 Lab Interpretation (test code = Normal 96152-9) [facility] Test Item Value Reference Range Interpretation Comments MICHELLE (test code = 0404760477) 58 U/L 35-110 Lab Interpretation (test code = Normal 38556-7) [facility] Test Item Value Reference Range Interpretation Comments MICHELLE (test code = 6878137356) 58 U/L 35-110 Lab Interpretation (test code = Normal 30361-7) [facility] Test Item Value Reference Range Interpretation Comments MICHELLE (test code = 0177281938) 58 U/L 35-110 Lab Interpretation (test code = Normal 39415-8) [facility] Test Item Value Reference Range Interpretation Comments MICHELLE (test code = 4691925589) 58 U/L 35-110 Lab Interpretation (test code = Normal 99729-2) [facility] Test Item Value Reference Range Interpretation Comments MICHELLE (test code = 5255620107) 58 U/L 35-110 Lab Interpretation (test code = Normal 20057-0) [facility] Test Item Value Reference Range Interpretation Comments MICHELLE (test code = 7136500379) 58 U/L 35-110 Lab Interpretation (test code = Normal 76487-2) [facility] [id number] 15:44:00 Test Item Value Reference Range Interpretation Comments WBC (test code = See_Comment [Automated message] 6690-2) The system [employer] generated this result transmitted ref erence range: 4.20 - 1 0.70 10*3/?L. The re ference range was not u sed to interpret this result as normal/abnor mal. RBC (test code = See_Comment [Automated message] 949-8) The system [employer] generated this result transmitted ref erence range: 4.26 - 5 .52 10*6/?L. The re ference range was not u sed to interpret this result as normal/abnor mal. HGB (test code = 13.1 g/dL 12.2-16.4 718-7) HCT (test code = 40.0 % 38.4-49.3 4544-3) MCV (test code = 92.6 fL 81.7-95.6 787-2) MCH (test code = 30.3 pg 26.1-32.7 785-6) MCHC (test code = 32.8 g/dL 31.2-35 786-4) RDW-SD (test code 45.4 fL 38.5-51.6 = 03960-8) RDW-CV (test code 13.3 % 12.1-15.4 = 788-0) PLT (test code = See_Comment [Automated message] 567-3) The system [employer] generated this result transmitted ref erence range: 150 - 32 8 10*3/?L. The re ference range was not u sed to interpret this result as normal/abnor mal. MPV (test code = 10.3 fL 9.8-13 34973-9) NRBC/100 WBC (test See_Comment [Automat ed message] code = 5193107946) The syste m which generated this result transmitted ref erence range: 0.0 - 10 .0 /100 WBCs. The refer ence range was not u sed to interpret this result as normal/abnor mal. NRBC x10^3 (test <0.01 See_Comment [Automated message] code = 3460504854) The syste m which generated this result transmitted ref erence range: 10*3/?L. The reference range was not used to interpr et this result as normal/abnormal . GRAN MAT (NEUT) % 62.2 % (test code = 770-8) IMM GRAN % (test 0.50 % code = 4303125554) LYMPH % (test code 25.0 % = 736-9) MONO % (test code 8.6 % = 5905-5) EOS % (test code = 3.2 % 713-8) BASO % (test code 0.5 % = 706-2) GRAN MAT 3.44 10*3/uL 1.99-6.95 x10^3(ANC) (test code = 9486443316) IMM GRAN x10^3 0.03 10*3/uL 0-0.06 (test code = 1537463803) LYMPH x10^3 (test 1.39 10*3/uL 1.09-3.23 code = 731-0) MONO x10^3 (test 0.48 10*3/uL 0.36-1.02 code = 742-7) EOS x10^3 (test 0.18 10*3/uL 0.06-0.53 code = 711-2) BASO x10^3 (test 0.03 10*3/uL 0.01-0.09 code = 704-7) [facility] WITH [id number] 15:44:00 Test Item Value Reference Range Interpretation Comments WBC (test code = See_Comment [Automated message] 6690-2) The system [employer] generated this result transmitted ref erence range: 4.20 - 1 0.70 10*3/?L. The re ference range was not u sed to interpret this result as normal/abnor mal. RBC (test code = See_Comment [Automated message] 789-8) The system [employer] generated this result transmitted ref erence range: 4.26 - 5 .52 10*6/?L. The re ference range was not u sed to interpret this result as normal/abnor mal. HGB (test code = 13.1 g/dL 12.2-16.4 718-7) HCT (test code = 40.0 % 38.4-49.3 4544-3) MCV (test code = 92.6 fL 81.7-95.6 787-2) MCH (test code = 30.3 pg 26.1-32.7 785-6) MCHC (test code = 32.8 g/dL 31.2-35 786-4) RDW-SD (test code 45.4 fL 38.5-51.6 = 61134-2) RDW-CV (test code 13.3 % 12.1-15.4 = 788-0) PLT (test code = See_Comment [Automated message] 777-3) The system [employer] generated this result transmitted ref erence range: 150 - 32 8 10*3/?L. The re ference range was not u sed to interpret this result as normal/abnor mal. MPV (test code = 10.3 fL 9.8-13 47813-2) NRBC/100 WBC (test See_Comment [Automat ed message] code = 0849674036) The syste m which generated this result transmitted ref erence range: 0.0 - 10 .0 /100 WBCs. The refer ence range was not u sed to interpret this result as normal/abnor mal. NRBC x10^3 (test <0.01 See_Comment [Automated message] code = 1899006285) The syste m which generated this result transmitted ref erence range: 10*3/?L. The reference range was not used to interpr et this result as normal/abnormal . GRAN MAT (NEUT) % 62.2 % (test code = 770-8) IMM GRAN % (test 0.50 % code = 4050893881) LYMPH % (test code 25.0 % = 736-9) MONO % (test code 8.6 % = 5905-5) EOS % (test code = 3.2 % 713-8) BASO % (test code 0.5 % = 706-2) GRAN MAT 3.44 10*3/uL 1.99-6.95 x10^3(ANC) (test code = 8693148366) IMM GRAN x10^3 0.03 10*3/uL 0-0.06 (test code = 5793083489) LYMPH x10^3 (test 1.39 10*3/uL 1.09-3.23 code = 731-0) MONO x10^3 (test 0.48 10*3/uL 0.36-1.02 code = 742-7) EOS x10^3 (test 0.18 10*3/uL 0.06-0.53 code = 711-2) BASO x10^3 (test 0.03 10*3/uL 0.01-0.09 code = 704-7) [facility] WITH [id number] 15:44:00 Test Item Value Reference Range Interpretation Comments WBC (test code = See_Comment [Automated message] 7290-2) The system [employer] generated this result transmitted ref erence range: 4.20 - 1 0.70 10*3/?L. The re ference range was not u sed to interpret this result as normal/abnor mal. RBC (test code = See_Comment [Automated message] 049-8) The system [employer] generated this result transmitted ref erence range: 4.26 - 5 .52 10*6/?L. The re ference range was not u sed to interpret this result as normal/abnor mal. HGB (test code = 13.1 g/dL 12.2-16.4 718-7) HCT (test code = 40.0 % 38.4-49.3 4544-3) MCV (test code = 92.6 fL 81.7-95.6 787-2) MCH (test code = 30.3 pg 26.1-32.7 785-6) MCHC (test code = 32.8 g/dL 31.2-35 786-4) RDW-SD (test code 45.4 fL 38.5-51.6 = 47725-8) RDW-CV (test code 13.3 % 12.1-15.4 = 788-0) PLT (test code = See_Comment [Automated message] 777-3) The system whic h generated this result transmitted ref erence range: 150 - 32 8 10*3/?L. The re ference range was not u sed to interpret this result as normal/abnor mal. MPV (test code = 10.3 fL 9.8-13 75092-8) NRBC/100 WBC (test See_Comment [Automat ed message] code = 3132112739) The syste m which generated this result transmitted ref erence range: 0.0 - 10 .0 /100 WBCs. The refer ence range was not u sed to interpret this result as normal/abnor mal. NRBC x10^3 (test <0.01 See_Comment [Automated message] code = 2978646540) The syste m which generated this result transmitted ref erence range: 10*3/?L. The reference range was not used to interpr et this result as normal/abnormal . GRAN MAT (NEUT) % 62.2 % (test code = 770-8) IMM GRAN % (test 0.50 % code = 8909190959) LYMPH % (test code 25.0 % = 736-9) MONO % (test code 8.6 % = 5905-5) EOS % (test code = 3.2 % 713-8) BASO % (test code 0.5 % = 706-2) GRAN MAT 3.44 10*3/uL 1.99-6.95 x10^3(ANC) (test code = 1641591729) IMM GRAN x10^3 0.03 10*3/uL 0-0.06 (test code = 1218572208) LYMPH x10^3 (test 1.39 10*3/uL 1.09-3.23 code = 731-0) MONO x10^3 (test 0.48 10*3/uL 0.36-1.02 code = 742-7) EOS x10^3 (test 0.18 10*3/uL 0.06-0.53 code = 711-2) BASO x10^3 (test 0.03 10*3/uL 0.01-0.09 code = 704-7) [facility] WITH [id number] 15:44:00 Test Item Value Reference Range Interpretation Comments WBC (test code = See_Comment [Automated message] 6690-2) The system [employer] generated this result transmitted ref erence range: 4.20 - 1 0.70 10*3/?L. The re ference range was not u sed to interpret this result as normal/abnor mal. RBC (test code = See_Comment [Automated message] 9-8) The system [employer] generated this result transmitted ref erence range: 4.26 - 5 .52 10*6/?L. The re ference range was not u sed to interpret this result as normal/abnor mal. HGB (test code = 13.1 g/dL 12.2-16.4 718-7) HCT (test code = 40.0 % 38.4-49.3 4544-3) MCV (test code = 92.6 fL 81.7-95.6 787-2) MCH (test code = 30.3 pg 26.1-32.7 785-6) MCHC (test code = 32.8 g/dL 31.2-35 786-4) RDW-SD (test code 45.4 fL 38.5-51.6 = 97057-6) RDW-CV (test code 13.3 % 12.1-15.4 = 788-0) PLT (test code = See_Comment [Automated message] 777-3) The system [employer] generated this result transmitted ref erence range: 150 - 32 8 10*3/?L. The re ference range was not u sed to interpret this result as normal/abnor mal. MPV (test code = 10.3 fL 9.8-13 30337-7) NRBC/100 WBC (test See_Comment [Automat ed message] code = 9110430724) The syste RUN which generated this result transmitted ref erence range: 0.0 - 10 .0 /100 WBCs. The refer ence range was not u sed to interpret this result as normal/abnor mal. NRBC x10^3 (test <0.01 See_Comment [Automated message] code = 6765681559) The syste m which generated this result transmitted ref erence range: 10*3/?L. The reference range was not used to interpr et this result as normal/abnormal . GRAN MAT (NEUT) % 62.2 % (test code = 770-8) IMM GRAN % (test 0.50 % code = 7903406500) LYMPH % (test code 25.0 % = 736-9) MONO % (test code 8.6 % = 5905-5) EOS % (test code = 3.2 % 713-8) BASO % (test code 0.5 % = 706-2) GRAN MAT 3.44 10*3/uL 1.99-6.95 x10^3(ANC) (test code = 6170017818) IMM GRAN x10^3 0.03 10*3/uL 0-0.06 (test code = 3749010474) LYMPH x10^3 (test 1.39 10*3/uL 1.09-3.23 code = 731-0) MONO x10^3 (test 0.48 10*3/uL 0.36-1.02 code = 742-7) EOS x10^3 (test 0.18 10*3/uL 0.06-0.53 code = 711-2) BASO x10^3 (test 0.03 10*3/uL 0.01-0.09 code = 704-7) [facility] WITH [id number] 15:44:00 Test Item Value Reference Range Interpretation Comments WBC (test code = See_Comment [Automated message] 6690-2) The system [employer] generated this result transmitted ref erence range: 4.20 - 1 0.70 10*3/?L. The re ference range was not u sed to interpret this result as normal/abnor mal. RBC (test code = See_Comment [Automated message] 789-8) The system [employer] generated this result transmitted ref erence range: 4.26 - 5 .52 10*6/?L. The re ference range was not u sed to interpret this result as normal/abnor mal. HGB (test code = 13.1 g/dL 12.2-16.4 708-7) HCT (test code = 40.0 % 38.4-49.3 4544-3) MCV (test code = 92.6 fL 81.7-95.6 787-2) MCH (test code = 30.3 pg 26.1-32.7 785-6) MCHC (test code = 32.8 g/dL 31.2-35 786-4) RDW-SD (test code 45.4 fL 38.5-51.6 = 59413-2) RDW-CV (test code 13.3 % 12.1-15.4 = 788-0) PLT (test code = See_Comment [Automated message] 777-3) The system [employer] generated this result transmitted ref erence range: 150 - 32 8 10*3/?L. The re ference range was not u sed to interpret this result as normal/abnor mal. MPV (test code = 10.3 fL 9.8-13 38033-1) NRBC/100 WBC (test See_Comment [Automat ed message] code = 4557380917) The syste m which generated this result transmitted ref erence range: 0.0 - 10 .0 /100 WBCs. The refer ence range was not u sed to interpret this result as normal/abnor mal. NRBC x10^3 (test <0.01 See_Comment [Automated message] code = 0733626291) The syste m which generated this result transmitted ref erence range: 10*3/?L. The reference range was not used to interpr et this result as normal/abnormal . GRAN MAT (NEUT) % 62.2 % (test code = 770-8) IMM GRAN % (test 0.50 % code = 3682762567) LYMPH % (test code 25.0 % = 736-9) MONO % (test code 8.6 % = 5905-5) EOS % (test code = 3.2 % 713-8) BASO % (test code 0.5 % = 706-2) GRAN MAT 3.44 10*3/uL 1.99-6.95 x10^3(ANC) (test code = 9559731856) IMM GRAN x10^3 0.03 10*3/uL 0-0.06 (test code = 6709822416) LYMPH x10^3 (test 1.39 10*3/uL 1.09-3.23 code = 731-0) MONO x10^3 (test 0.48 10*3/uL 0.36-1.02 code = 742-7) EOS x10^3 (test 0.18 10*3/uL 0.06-0.53 code = 711-2) BASO x10^3 (test 0.03 10*3/uL 0.01-0.09 code = 704-7) [facility] WITH [id number] 15:44:00 Test Item Value Reference Range Interpretation Comments WBC (test code = See_Comment [Automated message] 9590-2) The system [employer] generated this result transmitted ref erence range: 4.20 - 1 0.70 10*3/?L. The re ference range was not u sed to interpret this result as normal/abnor mal. RBC (test code = See_Comment [Automated message] 769-8) The system [employer] generated this result transmitted ref erence range: 4.26 - 5 .52 10*6/?L. The re ference range was not u sed to interpret this result as normal/abnor mal. HGB (test code = 13.1 g/dL 12.2-16.4 718-7) HCT (test code = 40.0 % 38.4-49.3 4544-3) MCV (test code = 92.6 fL 81.7-95.6 787-2) MCH (test code = 30.3 pg 26.1-32.7 785-6) MCHC (test code = 32.8 g/dL 31.2-35 786-4) RDW-SD (test code 45.4 fL 38.5-51.6 = 32825-6) RDW-CV (test code 13.3 % 12.1-15.4 = 788-0) PLT (test code = See_Comment [Automated message] 817-3) The system [employer] generated this result transmitted ref erence range: 150 - 32 8 10*3/?L. The re ference range was not u sed to interpret this result as normal/abnor mal. MPV (test code = 10.3 fL 9.8-13 78517-6) NRBC/100 WBC (test See_Comment [Automat ed message] code = 0472346369) The syste m which generated this result transmitted ref erence range: 0.0 - 10 .0 /100 WBCs. The refer ence range was not u sed to interpret this result as normal/abnor mal. NRBC x10^3 (test <0.01 See_Comment [Automated message] code = 1731920795) The syste m which generated this result transmitted ref erence range: 10*3/?L. The reference range was not used to interpr et this result as normal/abnormal . GRAN MAT (NEUT) % 62.2 % (test code = 770-8) IMM GRAN % (test 0.50 % code = 7095057487) LYMPH % (test code 25.0 % = 736-9) MONO % (test code 8.6 % = 5905-5) EOS % (test code = 3.2 % 713-8) BASO % (test code 0.5 % = 706-2) GRAN MAT 3.44 10*3/uL 1.99-6.95 x10^3(ANC) (test code = 5579418904) IMM GRAN x10^3 0.03 10*3/uL 0-0.06 (test code = 9179246185) LYMPH x10^3 (test 1.39 10*3/uL 1.09-3.23 code = 731-0) MONO x10^3 (test 0.48 10*3/uL 0.36-1.02 code = 742-7) EOS x10^3 (test 0.18 10*3/uL 0.06-0.53 code = 711-2) BASO x10^3 (test 0.03 10*3/uL 0.01-0.09 code = 704-7) [facility]- [facility] W/O CONT [id number] 16:12:00 Patient Name: TONYA SHI Unit No: [id number] EXAMS: CPT CODE: [id number] MRI UP [facility] W/[place] [address] MRI OF THE LEFT SHOULDER DIAGNOSIS: 1. Full-thicknesstears of the supraspinatus and infraspinatus tendons with [...] Santiago Castaneda MD Technologist: Lillie Siddiqi(R) Transcribed D/T: 1 (4783) [facility] NAME: TONYA SHI [address] PHYS: Santiago Casey : 1945 AGE: 74 SEX: M [place] [address] LOC: Y.MRI PHONE #: [phone] EXAM DATE: 08/17/2019 STATUS: REG CLI FAX #: [phone] RAD #: D/C DT PAGE 1 Signed Report Patient Name: TONYA SHI Unit No: [id number] EXAMS: CPT CODE: [id number] MRI [place] J[place] [address] <Continued> Orig Print D/T: S: 08/17/2019 (1853) [facility] NAME: TONYA SHI [address] [facility] PHYS: ALYSSASantiago Gautam : 1945 AGE: 74 SEX: M [place] [address] LOC: Y.MRI PHONE #: [phone] EXAM DATE: 08/17/2019 STATUS: REG CLI FAX #:[phone] RAD #: D/C DT PAGE 2 Signed Report BASIC METABOLIC [id number] 13:09:00 Test Item Value Reference Range Interpretation Comments SODIUM (test code = 141 mmol/L 136-145 N NA) POTASSIUM (test code = 4.7 mmol/L 3.5-5.1 N K) CHLORIDE (test code = 103.0 mmol/L 98-107 N CL) CARBON DIOXIDE (test 28.6 mmol/L 21-32 N code = CO2) GLUCOSE (test code = 98 mg/dL 70-110 N GLU) BLOOD UREA NITROGEN 30 mg/dL 7-18 H (test code = BUN) GLOMERULAR FILTRATION 46.9 >60 Unit o f measure: RATE (test code = GFR) mL/mi n/1.73 [id number] Range:Healthy Adults >90 mL/min/1.73 m2 For Chronic Kidney Disease: St age II Mild Decrease in GFR 60-90 St age III Moderate Decrease in GFR 30-59 Stage IV Severe Decre ase in GFR 15- 29 Stage V Kidney Failure <15 CREATININE (test code 1.46 mg/dL 0.55-1.30 H = CREAT) CALCIUM (test code = 9.1 mg/dL 8.2-10.1 N CA) HGB [id number] 12:29:00 Test Item Value Reference Range Interpretation Comments HEMOGLOBIN (test code = HGB) 12.7 g/dL 12-16 N HEMATOCRIT (test code = HCT) 38.2 % 37-47 N HGB [id number] 05:56:00 Test Item Value Reference Range Interpretation Comments HEMOGLOBIN (test code = HGB) 12.3 g/dL 12-16 N HEMATOCRIT (test code = HCT) 37.3 % 37-47 N URINALYSIS [id number] 16:32:00 Test Item Value Reference Range Interpretation [...] = MUCU) 2+ /LPF NONE SEEN PROTHROMBIN [id number] 14:02:00 Test Item Value Reference Range Interpretation [...] Patient is on Heparin Drip? NOTHROMBOPLASTIN TIME [id number] 14:02:00 Test Item Value Reference Range Interpretation [...] Patient is on Heparin Drip? NOTHROMBOPLASTIN TIME [id number] 14:02:00 Test Item Value Reference Range Interpretation Comments PTT ACTIVATED (test code = APTT) 26.4 secs 24.9-37.0 N IS PATIENT ON ANTICOAGULANTS ? YLIST ANTICOAGULANT/ANTI PLT MEDICATION : AspirinHas Lab been notified if Patient is on Heparin Drip? NOCOMPREHENSIVE METABOLIC [id number] 13:20:00 Test Item Value Reference Range Interpretation [...] RATE (test code = GFR) mL/mi n/1.73 [id number] Range:Healthy Adults >90 mL/min/1.73 m2 For Chronic [...] TOTAL (test code = ALKP) CBC W/AUTO [id number] 13:00:00 Test Item Value Reference Range Interpretation [...] PLATELET MORPHOLOGY REQUIRED (test NORMAL code = PLTMR)"
--- NOTE | 2022-02-11 11:36 | ER ---
Nurse's Notes [facility] Name: Zion Guzman Age: 76 yrs Sex: Male : 1945 Arrival Date: 02/11/2022 Time: 10:21 Bed 25 Private MD: Juan Carlos Cornejo E Diagnosis: Chest pain, unspecified;Weakness;Functional dyspepsia;Obesity, unspecified Presentation: 02/11 10:27 Chief complaint: Patient states: Burning sensation in chest began yesterday evening vg1 with cold sweats, nausea and SOB. Coronavirus screen: Vaccine status: Patient reports receiving the 2nd dose of the covid vaccine. Client denies travel out of the [place] in the last 14 days. Ebola Screen: Patient negative for fever greater than or equal to 101.5 degrees Fahrenheit, and additional compatible Ebola Virus Disease symptoms. Initial Sepsis Screen: Does the patient meet any 2 criteria? No. Patient's initial sepsis screen is negative. Does the patient have a suspected source of infection? No. Patient's initial sepsis screen is negative. Risk Assessment: Do you want to hurt yourself or someone else?. Onset of symptoms was February 10, 2022. 10:27 Method Of Arrival: Ambulatory vg1 10:27 Acuity: EASTON 2 vg1 Triage Assessment: 10:30 General: Appears uncomfortable, Behavior is calm, cooperative. Pain: Complains of pain vg1 in chest Pain currently is 0 out of 10 on a pain scale. Historical: - Allergies: 10:30 Codeine; vg1 10:30 Robaxin; vg1 - Home Meds: 10:30 Aspirin Oral [Active]; atorvastatin Oral [Active]; citalopram oral [Active]; lisinopril vg1 Oral [Active]; memantine Oral [Active]; - PMHx: 10:30 CVA; Hypertension; shingles; Dementia; vg1 - Immunization history:: Client reports receiving the 2nd dose of the Covid vaccine. - Social history:: Smoking status: Patient/guardian denies using tobacco, the patient reports quitting approximately 3 years ago. - Family history:: not pertinent. Screenin:30 Abuse screen: Denies threats or abuse. Denies injuries from another. Nutritional bp screening: No deficits noted. Tuberculosis screening: No symptoms or risk factors identified. Fall Risk None identified. Assessment: 10:30 General: SEE TRIAGE NOTE. bp Vital Signs: 10:27 BP 163 / 82; Pulse 78; Resp 18; Temp 97.8; Pulse Ox 98% on R/A; Weight 102.06 kg; bp Height 5 ft. 9 in. (175.26 cm); Pain 0/10; 10:27 Body Mass Index 33.23 (102.06 kg, 175.26 cm) bp ED Course: 10:21 Patient arrived in ED. am2 10:21 Juan Carlos Cornejo MD is Private Physician. am2 10:30 Triage completed. vg1 10:30 Arm band placed on. vg1 10:30 Patient has correct armband on for positive identification. Bed in low position. Call bp light in reach. Side rails up X2. 10:34 Niranjan Perkins, RN is Primary Nurse. bp 10:38 Te Reynolds MD is Attending Physician. herminio 11:15 EKG done, by ED staff, reviewed by Te Reynolds MD. 3 11:18 Missed attempt(s): 20 gauge in left forearm. Bleeding controlled, band aid applied, dh3 catheter tip intact. 11:24 Initial lab(s) drawn, by ok, sent to lab. Inserted saline lock: 22 gauge in right dh3 antecubital area, using aseptic technique. Blood collected. 11:34 Fritz Fernandez is Hospitalizing Provider. herminio 11:35 XRAY Chest (1 view) In Process Unspecified. EDMS Administered Medications: 11:30 Drug: NS 0.9% 1000 ml Route: IV; Rate: 125 ml/hr; Site: right antecubital; bp Outcome: 11:35 Decision to Hospitalize by Provider. herminio 02/12 10:54 Patient left the ED. jl7 Signatures: Dispatcher [employer] EDMS Te Reynolds MD MD cha Leal, Jahala RN RN jl7 Susan Mason Erendira Marvin [facility] Niranjan Perkins, RN Natalie Eller, RN RN vg1 Corrections: (The following items were deleted from the chart) 02/11 18:34 10:27 BP 163 / 82; Pulse 78bpm; Resp 18bpm; Pulse Ox 98% RA; Temp 97.8F; 102.06 kg; bp Height 5 ft. 9 in.; BMI: 33.2; Pain 0/10; vg1
--- NOTE | 2022-02-11 11:36 | EDPHYS ---
Physician Documentation [facility] Name: Zion Guzman Age: 76 yrs Sex: Male : 1945 Arrival Date: 02/11/2022 Time: 10:21 Bed 25 Private MD: Juan Carlso Cornejo E ED Physician Te Reynolds HPI: 02/11 11:31 This 76 yrs old Male presents to ER via Ambulatory with complaints of burning herminio sensation on chest, cold sweats. 11:31 The patient or guardian reports chest pain that is located primarily in the substernal herminio area. Onset: 1 day(s) ago. chest burning and chills. The pain does not radiate. Onset: The symptoms/episode began/occurred 1 day(s) ago. Associated signs and symptoms: The patient has no apparent associated signs or symptoms. The chest pain is described as burning. Modifying factors: The symptoms are alleviated by nothing. the symptoms are aggravated by nothing. Severity of pain: At its worst the pain was mild in the emergency department the pain is unchanged. Historical: - Allergies: 10:30 Codeine; vg1 10:30 Robaxin; vg1 - Home Meds: 10:30 Aspirin Oral [Active]; atorvastatin Oral [Active]; citalopram oral [Active]; lisinopril vg1 Oral [Active]; memantine Oral [Active]; - PMHx: 10:30 CVA; Hypertension; shingles; Dementia; vg1 - Immunization history:: Client reports receiving the 2nd dose of the Covid vaccine. - Social history:: Smoking status: Patient/guardian denies using tobacco, the patient reports quitting approximately 3 years ago. - Family history:: not pertinent. ROS: 11:31 Constitutional: Negative for fever, chills, and weight loss, Eyes: Negative for injury, herminio pain, redness, and discharge, ENT: Negative for injury, pain, and discharge, Neck: Negative for injury, pain, and swelling, Respiratory: Negative for shortness of breath, cough, wheezing, and pleuritic chest pain, Abdomen/GI: Negative for abdominal pain, nausea, vomiting, diarrhea, and constipation, Back: Negative for injury and pain, : Negative for injury, bleeding, discharge, and swelling, MS/Extremity: Negative for injury and deformity, Skin: Negative for injury, rash, and discoloration, Neuro: Negative for headache, weakness, numbness, tingling, and seizure, Psych: Negative for depression, anxiety, suicide ideation, homicidal ideation, and hallucinations, Allergy/Immunology: Negative for hives, rash, and allergies, Endocrine: Negative for neck swelling, polydipsia, polyuria, polyphagia, and marked weight changes, Hematologic/Lymphatic: Negative for swollen nodes, abnormal bleeding, and unusual bruising. 11:31 Cardiovascular: Positive for chest pain. Exam: 11:31 Constitutional: This is a well developed, well nourished patient who is awake, alert, herminio and in no acute distress. Head/Face: Normocephalic, atraumatic. Eyes: Pupils equal round and reactive to light, extra-ocular motions intact. Lids and lashes normal. Conjunctiva and sclera are non-icteric and not injected. Cornea within normal limits. Periorbital areas with no swelling, redness, or edema. ENT: Nares patent. No nasal discharge, no septal abnormalities noted. Tympanic membranes are normal and external auditory canals are clear. Oropharynx with no redness, swelling, or masses, exudates, or evidence of obstruction, uvula midline. Mucous membranes moist. Neck: Trachea midline, no thyromegaly or masses palpated, and no cervical lymphadenopathy. Supple, full range of motion without nuchal rigidity, or vertebral point tenderness. No Meningismus. Chest/axilla: Normal chest wall appearance and motion. Nontender with no deformity. No lesions are appreciated. Cardiovascular: Regular rate and rhythm with a normal S1 and S2. No gallops, murmurs, or rubs. Normal PMI, no JVD. No pulse deficits. Respiratory: Lungs have equal breath sounds bilaterally, clear to auscultation and percussion. No rales, rhonchi or wheezes noted. No increased work of breathing, no retractions or nasal flaring. Abdomen/GI: Soft, non-tender, with normal bowel sounds. No distension or tympany. No guarding or rebound. No evidence of tenderness throughout. Back: No spinal tenderness. No costovertebral tenderness. Full range of motion. Skin: Warm, dry with normal turgor. Normal color with no rashes, no lesions, and no evidence of cellulitis. MS/ Extremity: Pulses equal, no cyanosis. Neurovascular intact. Full, normal range of motion. Neuro: Awake and alert, GCS 15, oriented to person, place, time, and situation. Cranial nerves II-XII grossly intact. Motor strength 5/5 in all extremities. Sensory grossly intact. Cerebellar exam normal. Normal gait. Psych: Awake, alert, with orientation to person, place and time. Behavior, mood, and affect are within normal limits. 11:35 ECG was reviewed by the Attending Physician. [facility] Vital Signs: 10:27 BP 163 / 82; Pulse 78; Resp 18; Temp 97.8; Pulse Ox 98% on R/A; Weight 102.06 kg; bp Height 5 ft. 9 in. (175.26 cm); Pain 0/10; 10:27 Body Mass Index 33.23 (102.06 kg, 175.26 cm) bp MDM: 10:38 Patient medically screened. herminio 11:33 Differential diagnosis: abnormal EKG, acute pericarditis, chest wall pain, herminio Cholelithiasis costochondritis, esophagitis, gastritis, hiatal hernia, pancreatitis, pneumonia, stable angina, unstable angina. Differential Diagnosis sepsis. HEART Score: History: Slightly Suspicious (0), ECG: Non specific repolarization disturbance / LBTB / PM (1), Age: > or = 65 years (2), Risk Factors: > or = 3 Risk factors for atherosclerotic disease (2), [Hypercholesterolemia] [Hypertension] [+ Family HX] Troponin: < or = 1 x Normal Limit (0). The patient was given aspirin in the Emergency Department. The patient's deep vein thrombosis risk score was calculated as follows: Total Score: 0. This patient was found to be at low risk for a deep vein thrombosis by using the Well's assessment criteria. The patient's pulmonary embolism risk score was calculated as follows: Total Score: 0-2 points. This patient was found to be at low risk for a pulmonary embolism by using the Well's assessment criteria. RIVERA Risk Score: 1 - patient's age is greater or equal to 65 years, 1 - Three or more CAD risk factors, 1- Known CAD, 1 - Elevated Cardiac Markers. Data reviewed: vital signs, nurses notes, lab test result(s), EKG, radiologic studies, plain films. Data interpreted: monitor technician: rate is 78 beats/min, rhythm is regular, Pulse oximetry: on room air is 98 %. Test interpretation: by ED physician or midlevel provider: ECG, plain radiologic studies. 02/11 10:52 Order name: Basic Metabolic Panel; Complete Time: 11:59 bd 02/11 10:52 Order name: CBC with Diff; Complete Time: 11:59 bd 02/11 10:52 Order name: Troponin HS; Complete Time: 11:59 bd 02/11 11:17 Order name: SARS-COV-2 RT PCR (Document "Date of Onset" if Symptomatic) herminio 02/11 11:17 Order name: Lactate herminio 02/11 11:20 Order name: PT-INR; Complete Time: 11:59 herminio 02/11 11:35 Order name: Lipase; Complete Time: 11:59 EDMS 02/11 17:53 Order name: Troponin High Sensitivity EDOK 02/11 21:37 Order name: Troponin High Sensitivity EDOK 02/12 03:32 Order name: Glucose, Ancillary Testing EDOK 02/12 03:43 Order name: CBC with Automated Diff EDOK 02/12 03:46 Order name: Basic Metabolic Panel EDOK 02/12 03:46 Order name: Phosphorus EDOK 02/11 10:52 Order name: XRAY Chest (1 view); Complete Time: 11:59 bd 02/11 10:52 Order name: EKG; Complete Time: 10:53 bd 02/11 10:52 Order name: Cardiac monitoring; Complete Time: 11:16 bd 02/11 10:52 Order name: EKG - Nurse/Tech; Complete Time: 11:32 bd 02/11 10:52 Order name: IV Saline Lock; Complete Time: 11:32 bd 02/11 10:52 Order name: Labs collected and sent; Complete Time: 11:32 bd 02/11 10:52 Order name: O2 Per Protocol; Complete Time: 11:16 bd 02/11 10:52 Order name: O2 Sat Monitoring; Complete Time: 11:16 bd 02/12 03:46 Order name: Magnesium EDOK 02/12 06:52 Order name: Blood Culture EDMS EC:35 Rate is 61 beats/min. Rhythm is regular. QRS [place] is Normal. MO interval is normal. QRS herminio interval is normal. QT interval is normal. No Q waves. T waves are Normal. No ST changes noted. Clinical impression: NSR w/ Non-specific ST/T Changes and No evidence of ischemia. Interpreted by me. Reviewed by me. Administered Medications: 11:30 Drug: NS 0.9% 1000 ml Route: IV; Rate: 125 ml/hr; Site: right antecubital; bp Disposition Summary: 02/11/22 11:35 Hospitalization Ordered Hospitalization Status: Observation herminio Provider: Fritz Fernandez cha Condition: Stable herminio Problem: new herminio Symptoms: have improved herminio Bed/Room Type: Standard herminio Location: Telemetry/MedSurg (observation)(02/12/22 10:29) dw Room Assignment: 209(02/12/22 10:29) dw Diagnosis - Chest pain, unspecified herminio - Weakness hemrinio - Functional dyspepsia herminio - Obesity, unspecified herminio Forms: - Medication Reconciliation Form herminio - SBAR form herminio Signatures: Dispatcher [employer] EDMS Skylar Blanc Diana, RN RN Te Costello MD MD cha Williams, Irene, RN RN iw Niranjan Perkins RN RN Natalie Redman RN RN vg1 Corrections: (The following items were deleted from the chart) 11:35 11:18 LIPASE+C.LAB.BRZ ordered. EDMS EDMS 16:49 11:35 Telemetry/MedSurg (observation) herminio iw 16:49 11:35 herminio iw 02/12 10:29 02/11 16:49 [facility] ER HOLD iw dw 02/12 10:02/11 16:49 ERHOLD- iw dw
[2022-02-11 11:37] LABS: Absolute Lymphocytes (CBC) 1.2 K/uL (0.7-4.9); Hematocrit 40.5 % (39.6-49.0); Lymphocytes % 17.4 % (15.3-44.8); MPV 8.7 fL (7.6-11.3); RBC Red Blood Cell Count 4.63 M/uL (4.33-5.43)
[2022-02-11 11:42] LABS: Protime INR 0.99
[2022-02-11] MEDS ORDERED: NA CHLORIDE 0.9% 1,000 ML ONE ×2 (11:42→18:47)
--- NOTE | 2022-02-11 11:46 | RAD REPORT ---
EXAM DESCRIPTION: RAD - Chest Single View - 02/11/2022 11:33 am CLINICAL HISTORY: CHEST PAIN COMPARISON: Chest Single View dated 12/27/2020; Chest Pa And Lat (2 Views) dated 12/26/2020; ABDOMEN 1 V IEW KUB dated 08/27/2014; ABDOMEN 1 VIEW KUB dated 08/21/2014 FINDINGS: Lines: None. Lungs: No evidence of edema or pneumonia. Pleural: No significant pleural effusions or pneumothorax. Cardiac: The heart size is within normal limits. Bones: No acute fractures. Other: IMPRESSION: No acute cardiopulmonary disease.
[2022-02-11 11:57] LABS: Potassium 4.1 mmol/L (3.5-5.1)
--- NOTE | 2022-02-11 13:40 | P.HP ---
Certification for Inpatient Patient admitted to: Observation With expected LOS: <2 Midnights Practitioner: I am a practitioner with admitting privileges, knowledge of patient current condition, hospital course, and medical plan of care. Services: Services provided to patient in accordance with Admission requirements found in Title 42 Section 412.3 of the Code of Federal Regulations Patient History Date of Service: 02/11/22 Reason for admission: Generalized weakness and chills History of Present Illness: 76-year-old gentleman with a history of TX, stroke, GERD presented to the emergency department due to generalized weakness of 3 days duration. Symptoms associated with chills. Patient also report heartburn, reduced oral intake since yesterday. He denies any fever, headache, diarrhea or vomiting. Blood work in the ED is unremarkable. EKG shows normal sinus rhythm no ischemic changes. Chest x-ray shows no acute changes. ED physician is concerned of angina in a patient with a history of TX and wishes to admit for further evaluation. Allergies codeine Allergy (Verified 11/11/17 11:40) Itching morphine Allergy (Verified 11/11/17 11:40) Itching/Hives/Rash Home Medications: Atorvastatin Calcium [Lipitor*] 20 mg PO BEDTIME 08/20/14 Citalopram [Celexa*] 20 mg PO DAILY 08/20/14 lisinopriL [Prinivil*] 20 mg PO DAILY AFTER SUPPER 08/20/14 Aspirin [Aspirin EC 325 MG] 325 mg PO DAILY 12/25/14 Omeprazole [Prilosec] 40 mg PO DAILY 11/11/17 Ciprofloxacin HCl [Cipro 500 MG Tablet] 500 mg PO BID #14 tab 12/29/20 Gabapentin 600 mg PO TID #30 tablet 12/29/20 L.acidoph,Paracasei, B.lactis [Probiotic] 1 each PO TID #30 capsule 12/29/20 metroNIDAZOLE [Flagyl] 500 mg PO Q8H #21 tablet 12/29/20 - Past Medical/Surgical History Diabetic: No -: HTN -: GERD -: Stroke -: TX -: Diverticulitis -: Hyperlipidemia -: bleeding ulcer -: Cholecystectomy -: freddie shoulder sx -: right knee sx Psychosocial/ Personal History: Patient is retired and lives with his - Family History Father Notes: "Im adopted I dont know my biological parent's medical history" per pt Mother Notes: "Im adopted I dont know my biological parent's medical history" per pt - Social History Alcohol use: Yes CD- Drugs: No Caffeine use: Yes Review of Systems Other: Except as documented, all other systems reviewed and negative. Physical Examination - Physical Exam General: Alert, In no apparent distress, Oriented x3, Obese HEENT: Normocephalic, PERRLA, Mucous membr. moist/pink, EOMI, Sclerae nonicteric Neck: Supple, JVD not distended Respiratory: Clear to auscultation bilaterally, Normal air movement Cardiovascular: No edema, Regular rate/rhythm, Normal S1 S2, No murmurs Capillary refill: <2 Seconds Gastrointestinal: Normal bowel sounds, Soft and benign, Non-distended, No tenderness Musculoskeletal: No swelling, No tenderness Integumentary: No rashes, No erythema, No cyanosis Neurological: Normal speech, Normal strength at 5/5 x4 extr, Cranial nerves 3-12 intact, Normal affect Lymphatics: No axilla or inguinal lymphadenopathy - Studies Laboratory Data (last 24 hrs) 02/11/22 11:24: PT 10.9, INR 0.99 02/11/22 11:24: WBC 6.9, Hgb 13.5 L, Hct 40.5, Plt Count 200 02/11/22 11:24: Sodium 140, Potassium 4.1, BUN 20 H, Creatinine 1.40 H, Glucose 141 H, Lipase 125 02/11/22 11:17: Lipase Cancelled Assessment and Plan - Problems (Diagnosis) (1) Generalized weakness Current Visit: Yes Status: Acute (2) Heartburn Current Visit: Yes Status: Acute (3) GERD (gastroesophageal reflux disease) Current Visit: Yes Status: Acute - Plan Placed under observation. Continue to trend troponin to rule out ACS. Obtain blood cultures, UA with reflex urine culture. No leukocytosis and no fever, so no antibiotics until cultures result. Protonix for heartburn. PT evaluation. Reconcile and continue other home medications. - Advance Directives Does patient have a Living Will: No Does patient have a Durable POA for Healthcare: No
[2022-02-11] MEDS: NA CHLORIDE 0.9% 1,000 ML IV SCH (16:28)
[2022-02-11] MEDS ORDERED: ONDANSETRON 4 MG/2 ML VIAL IV PRN (16:28)
[2022-02-11] MEDS: PANTOPRAZOLE 40MG TABLET PO SCH (16:30)
[2022-02-11] MEDS: ENOXAPARIN 40 MG/0.4 ML SQ SCH (17:00)
[2022-02-11 18:29] VITALS: BMI 33.2
[2022-02-11] MEDS ORDERED: PANTOPRAZOLE 40MG TABLET PO ONE (18:46)
[2022-02-11] MEDS ORDERED: ENOXAPARIN 40 MG/0.4 ML SQ ONE (18:47)
[2022-02-12] MEDS: NA CHLORIDE 0.9% 1,000 ML IV SCH ×2 (01:13→15:53)
[2022-02-12] MEDS ORDERED: NA CHLORIDE 0.9% 1,000 ML ONE (01:17)
[2022-02-12] MEDS: ACETAMINOPHEN 500 MG TAB PO PRN ×2 (03:22→07:26)
[2022-02-12] MEDS ORDERED: ACETAMINOPHEN 500 MG TAB ONE ×2 (03:25→07:28)
[2022-02-12 03:38] LABS: Absolute Lymphocytes (CBC) 1.6 K/uL (0.7-4.9); Hematocrit 37.3 % (39.6-49.0); Lymphocytes % 22.7 % (15.3-44.8); MPV 8.4 fL (7.6-11.3); RBC Red Blood Cell Count 4.32 M/uL (4.33-5.43)
[2022-02-12 03:46] LABS: Magnesium 2.3 mg/dL (1.8-2.4); Phosphorus 3.4 mg/dL (2.5-4.9)
[2022-02-12] MEDS: PANTOPRAZOLE 40MG TABLET PO SCH ×2 (07:30→15:53)
[2022-02-12] MEDS ORDERED: PANTOPRAZOLE 40MG TABLET PO ONE (07:42)
[2022-02-12 07:46] VITALS: O2SAT 97
--- NOTE | 2022-02-12 07:56 | EKG ---
Test Date: 2022-02-11 Test Time: 11:08:00 Rehab Specialist: LEO MEASUREMENT RESULTS: Intervals: Rate: 61 NM: 190 QRSD: 130 QT: 436 QTc: 438 [place]: P: 44 NM: 190 QRS: 21 T: 54 INTERPRETIVE STATEMENTS: Normal sinus rhythm with sinus arrhythmia Right bundle branch block Cannot rule out Inferior infarct, age undetermined Abnormal ECG Compared to ECG 12/26/2020 12:30:27 Myocardial infarct finding now present Ventricular premature complex(es) no longer present Electronically Signed On 02-12-22 07:55:30 CDT by Cayden Schmid
[2022-02-12] MEDS ORDERED: ENOXAPARIN 40 MG/0.4 ML SQ ONE (08:33)
[2022-02-12] MEDS: ENOXAPARIN 40 MG/0.4 ML SQ SCH (09:00)
[2022-02-12] MEDS ORDERED: VANCOMYCIN 1 GM in NA CHLORIDE 0.9% 250 ML IVPB SCH (14:00)
[2022-02-12] MEDS: VANCOMYCIN 1.75 GM in NA CHLORIDE 0.9% 500 ML IVPB SCH (15:53)
--- NOTE | 2022-02-12 16:35 | P.PN ---
Subjective Date of Service: 02/12/22 Chief Complaint: Generalized weakness and chills Patient reports cold sweats yesterday. He states he feels much better today. Physical Examination - Vital Signs Temperature: 97.5 F Blood Pressure: 150/65 Pulse: 81 Respirations: 16 Pulse Ox (%): 96 Assessment And Plan - Current Problems (Diagnosis) (1) Generalized weakness Current Visit: Yes Status: Acute (2) Heartburn Current Visit: Yes Status: Acute (3) GERD (gastroesophageal reflux disease) Current Visit: Yes Status: Acute - Plan Physical Exam General: Alert, In no apparent distress. HEENT: Mucous membr. moist/pink,Sclerae nonicteric Neck: Supple, JVD not distended Respiratory: Clear to auscultation bilaterally, Normal air movement Cardiovascular: No edema, Regular rate/rhythm, Normal S1 S2, No murmurs Gastrointestinal: Normal bowel sounds, Soft and benign, Non-distended, No tenderness Musculoskeletal: No swelling, No tenderness Integumentary: No rashes, No erythema, No cyanosis Neurological: Normal speech, Normal strength at 5/5 x4 extr, Cranial nerves 3-12 intact, Normal affect Plan: Troponin trended negative. ACS ruled out. Blood culture growing gram-positive cocci in clusters. This could be a skin contaminant but given patient was experiencing cold sweats, will treat with IV vancomycin and repeat blood culture. UA is pending. Protonix for heartburn. PT evaluation. Patient ambulated without assistance and has no PT needs. Continue other home medications.
[2022-02-12] MEDS ORDERED: lisinopriL 20 MG TAB PO SCH (17:30)
[2022-02-12] MEDS: LACTOBACILLUS/ACIDOPHILUS TAB PO SCH (20:26)
[2022-02-12] MEDS: GABAPENTIN 300 MG CAP PO SCH (20:27)
[2022-02-12] MEDS ORDERED: ATORVASTATIN 20 MG TAB PO SCH (21:00)
[2022-02-13 04:04] LABS: Absolute Lymphocytes (CBC) 1.5 K/uL (0.7-4.9); Hematocrit 36.7 % (39.6-49.0); Lymphocytes % 22.3 % (15.3-44.8); MPV 8.8 fL (7.6-11.3); RBC Red Blood Cell Count 4.14 M/uL (4.33-5.43)
[2022-02-13] MEDS: NA CHLORIDE 0.9% 1,000 ML IV SCH ×2 (06:28→08:28)
[2022-02-13] MEDS: PANTOPRAZOLE 40MG TABLET PO SCH (08:00)
[2022-02-13] MEDS ORDERED: CITALOPRAM 10 MG TABLET PO SCH (09:00)
[2022-02-13] MEDS ORDERED: HOME MED 1 EA UNK (Omeprazole [Prilosec] 40 MG Capsule.Dr) PO SCH (09:00)
[2022-02-13] MEDS: ENOXAPARIN 40 MG/0.4 ML SQ SCH (09:39)
[2022-02-13] MEDS: GABAPENTIN 300 MG CAP PO SCH ×2 (09:40→12:55)
[2022-02-13] MEDS: LACTOBACILLUS/ACIDOPHILUS TAB PO SCH ×2 (09:40→12:55)
--- NOTE | 2022-02-13 14:52 | P.DS ---
Admission Date: 02/11/22 Discharge Date: 02/13/22 Disposition: ROUTINE DISCHARGE Discharge Condition: FAIR Reason for Admission: Generalized weakness and chills - Problems (1) Generalized weakness Current Visit: Yes Status: Acute (2) Heartburn Current Visit: Yes Status: Acute (3) GERD (gastroesophageal reflux disease) Current Visit: Yes Status: Acute Brief History of Present Illness: 76-year-old gentleman with a history of AR, stroke, GERD presented to the emergency department due to generalized weakness of 3 days duration. Symptoms associated with chills. Patient also report heartburn, reduced oral intake since yesterday. He denies any fever, headache, diarrhea or vomiting. Blood work in the ED is unremarkable. EKG shows normal sinus rhythm no ischemic changes. Chest x-ray shows no acute changes. ED physician is concerned of angina in a patient with a history of AR and wishes to admit for further evaluation. Hospital Course: Placed under observation on the medical floor. Troponin trended negative. Blood cultures were done given patient complaining of cold sweats. Initial 1 blood culture set grew coagulase-negative staph in 1 bottle. This is likely due to a skin contaminant. Repeat blood culture yielded no growth. Patient was asymptomatic during the hospital stay. He was complaining of weakness and was evaluated by PT. Patient ambulated several feet without any assistive device. No ACS, no evidence of infection. Patient is deemed stable for discharge. Vital Signs/Physical Exam: Temp Pulse Resp BP Pulse Ox 98.2 F 67 19 146/72 H 98 02/13/22 04:00 02/13/22 04:00 02/13/22 04:00 02/13/22 04:00 02/13/22 04:00 General: Alert, In no apparent distress, Oriented x3 HEENT: Mucous membr. moist/pink Neck: Supple, JVD not distended Respiratory: Clear to auscultation bilaterally, Normal air movement Cardiovascular: Regular rate/rhythm, Normal S1 S2 Gastrointestinal: Soft and benign, Non-distended, No tenderness Musculoskeletal: No swelling Neurological: Normal strength at 5/5 x4 extr Laboratory Data at Discharge: WBC 6.8 K/uL (4.3-10.9) 02/13/22 03:20 Hgb 12.3 g/dL (13.6-17.9) L 02/13/22 03:20 Hct 36.7 % (39.6-49.0) L 02/13/22 03:20 Plt Count 153 K/uL (152-406) 02/13/22 03:20 PT 10.9 SECONDS (9.5-12.5) 02/11/22 11:24 INR 0.99 02/11/22 11:24 Sodium 141 mmol/L (136-145) 02/12/22 03:00 Potassium 4.0 mmol/L (3.5-5.1) 02/12/22 03:00 BUN 18 mg/dL (7-18) 02/12/22 03:00 Creatinine 1.17 mg/dL (0.55-1.3) 02/12/22 03:00 Glucose 116 mg/dL (74-106) H 02/12/22 03:00 Phosphorus 3.4 mg/dL (2.5-4.9) 02/12/22 03:00 Magnesium 2.3 mg/dL (1.8-2.4) 02/12/22 03:00 Lipase 125 U/L (73-393) 02/11/22 11:24 Home Medications: Atorvastatin Calcium [Lipitor*] 20 mg PO BEDTIME 08/20/14 Citalopram [Celexa*] 20 mg PO DAILY 08/20/14 lisinopriL [Prinivil*] 20 mg PO DAILY AFTER SUPPER 08/20/14 Aspirin [Aspirin EC 325 MG] 325 mg PO DAILY 12/25/14 Omeprazole [Prilosec] 40 mg PO DAILY 11/11/17 Ciprofloxacin HCl [Cipro 500 MG Tablet] 500 mg PO BID #14 tab 12/29/20 Gabapentin 600 mg PO TID #30 tablet 12/29/20 L.acidoph,Paracasei, B.lactis [Probiotic] 1 each PO TID #30 capsule 12/29/20 metroNIDAZOLE [Flagyl*] 500 mg PO Q8H #21 tablet 12/29/20 Diet: AHA Activity: Ad chucho Followup: Krystian Mccoy [Primary Care Provider] -
[2022-02-13] MEDS: VANCOMYCIN 1.75 GM in NA CHLORIDE 0.9% 500 ML IVPB SCH (15:41)
[2022-02-13 17:35] VITALS: BP 190/81; TEMP 97.8
== END 2022-02-13 18:24 | disposition home or self-care (01) ==
LOC: ER 10:18 → ERHOLD 13:34 → 2ND 02-12 10:38
PROVIDERS: ADMIT Internal Medicine; ATTEND Internal Medicine
DX: R53.1 Weakness (principal); R12 Heartburn; K21.9 Gastro-esophageal reflux disease without esophagitis; R68.83 Chills (without fever); I25.2 Old myocardial infarction; I10 Essential (primary) hypertension; E78.5 Hyperlipidemia, unspecified; Z86.73 Personal history of transient ischemic attack (TIA), and cerebral infarction without residual deficits; Z79.82 Long term (current) use of aspirin; Z79.899 Other long term (current) drug therapy; Z88.5 Allergy status to narcotic agent; Z87.11 Personal history of peptic ulcer disease; Z90.49 Acquired absence of other specified parts of digestive tract; Z20.822 Contact with and (suspected) exposure to COVID-19
CPT/HCPCS: 93005; 87040 ×3; 85025 ×3; 80048 ×2; 36415 ×2; 83735; 87205; 84100; 85610; 82947; 83605; 84484 ×3; 83690; 71045; 97161; 99284; U0003; J1650 ×3; J3370 ×2; G0378 ×5; J7040 ×2; J7030 ×6